=== PATIENT | male | born 1935 | race Caucasian/White ===

== ENCOUNTER 2017-08-04 23:03 | Emergency (ER) | payer MEDICARE, OTHER ==
[2017-08-04 23:17] VITALS: BP 163/93
[2017-08-04] MEDS ORDERED: Acetaminophen/oxyCODONE 325-5 MG Tab PO ONE (23:41)
--- NOTE | 2017-08-04 23:44 | EDM.PDOC ---
ED HPI GENERAL MEDICAL PROBLEM - General Chief Complaint: Genitourinary Problem Stated Complaint: CATH IS COMING OUT Time Seen by Provider: 08/04/17 23:41 Source of Information: Reports: Patient, Family History Limitations: Reports: No Limitations - History of Present Illness INITIAL COMMENTS - FREE TEXT/NARRATIVE: 82-year-old male attends the ED with pain in his suprapubic area and perineum. He is experiencing significant bladder spasms i.e. with the pain he will sometimes express urine around the Lake catheter that he was what was placed 3 days ago. He was placed because his development of significant gross hematuria. Was hospitalized for 24 hours on bladder irrigation to bring the bleeding under control. He is scheduled for cystoscopy next August 10 in [place]. This occurred once before we developed significant hematuria without any positive findings on cystoscopy. Patient has had previous high been radiation treatments to his prostate about 8 years ago for cancer. 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 He does take an aspirin every day but it was stopped by the physicians in [place] until his cystoscopy is done. He came because of the expense and no significant pain and was concerned that the Lake catheter may be in the wrong position or trying to come out. Urine in his drainage bag is clear yellow at this time without blood. There is no evidence that it is clogged up by blood clot.he reports he was given an unknown be suppository after the catheter was placed. A catheter is in place is a 20-gauge with a 30 mL balloon. Onset: Today Onset Date: 08/04/17 Onset Time: 16:00 Duration: Hour(s): Location: Reports: Abdomen (suprapubic abdomen.) Quality: Reports: Ache, Other Severity: Severe (spastic type pain) Improves with: Reports: None (8 out of 10 when he gets bladder spasms.) Worsens with: Reports: None Context: Reports: Other (Lake catheter placed with a 30 mL balloon 20-gauge 2-1 /2 days ago due to development of gross hematuria. Required irrigation of hospitalization in [place] overnight for 24 hours. Discharged early this morning.). 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.) penis Pain Score (Numeric/FACES): 4 - Related Data Allergies Allergy/AdvReac Type Severity Reaction Status Date / Time cortisone Allergy Rash Verified 08/04/17 23:18 diphenhydramine Allergy Difficulty Verified 08/04/17 23:18 [From Benadryl] Breathing venom-honey bee Allergy Difficulty Verified 08/04/17 23:18 [bee venom (honey bee)] Breathing Home Meds: Home Meds Albuterol [Ventolin HFA] 2 puff INH Q4H PRN 02/13/14 [History] Aspirin [Adult Low Dose Aspirin EC] 81 mg PO DAILY 02/13/14 [History] Cayenne 450 mg PO DAILY 02/13/14 [History] Cholecalciferol (Vitamin D3) [Vitamin D] 1,000 unit PO BID 02/13/14 [History] Cinnamon Bark [Cinnamon] 500 mg PO DAILY 02/13/14 [History] EPINEPHrine [Epipen] 0.3 mg IM ASDIRECTED PRN 02/13/14 [History] Enalapril [Vasotec] 5 mg PO DAILY 02/13/14 [History] Flunisolide [Nasalide Nasal [place]] 2 spray YIFAN BID 02/13/14 [History] Hydrochlorothiazide 50 mg PO DAILY 02/13/14 [History] Imipramine HCl [Imipramine] 50 mg PO BEDTIME 02/13/14 [History] Pantoprazole [Protonix] 40 mg PO DAILY 02/13/14 [History] rOPINIRole HCl [Requip] 0.5 mg PO DAILY 02/13/14 [History] Azelastine HCl 2 spray NS BID 08/04/17 [History] Budesonide/Formoterol [Symbicort 80-4.5 MCG] 2 puff INH BID 08/04/17 [History] Cyanocobalamin (Vitamin B12) [Vitamin B12] 1,000 mcg PO DAILY 08/04/17 [History] Levofloxacin [Levaquin] 500 mg PO DAILY 08/04/17 [History] Naproxen Sodium [Aleve] 2 tab PO BID PRN 08/04/17 [History] Ranitidine [Zantac] 150 mg PO BEDTIME 08/04/17 [History] Tiotropium [Spiriva HandiHaler] 2 puff INH DAILY 08/04/17 [History] atorvaSTATin Calcium [Atorvastatin Calcium] 80 mg PO DAILY 08/04/17 [History] guaiFENesin [Guaifenesin ER] 600 mg PO DAILY 08/04/17 [History] oxyCODONE HCl/Acetaminophen [Percocet 5-325 mg Tablet] 1 - 2 each PO Q4H PRN #5 tablet 08/04/17 [Rx] Past Medical History HEENT History: Reports: Impaired Vision Cardiovascular History: Reports: Aneurysm, CAD, High Cholesterol, Hypertension, Other (See Below) Other Cardiovascular History: CVD Respiratory History: Reports: Asthma, COPD Gastrointestinal History: Reports: Gastritis, GERD Genitourinary History: Reports: BPH, Renal Disease, Retention, Urinary, Other ( See Below) Other Genitourinary History: hx prostate cancer with high dose radiation, hematuria Musculoskeletal History: Reports: Arthritis Neurological History: Reports: CVA Psychiatric History: Reports: Other (See Below) Other Psychiatric History: insomnia Hematologic History: Reports: B12 Deficiency Oncologic (Cancer) History: Reports: Basal Cell Carcinoma, Malignant Melanoma, Prostate Dermatologic History: Reports: Benign Melanoma, Melanoma - Past Surgical History HEENT Surgical History: Reports: Tonsillectomy Cardiovascular Surgical History: Reports: AAA Repair, Carotid Stents Neurological Surgical History: Reports: Other (See Below) Other Neurological Surgeries/Procedures: carotid endartectomy Dermatological Surgical History: Reports: Skin Biopsy Social & Family History - Family History Family Medical History: Noncontributory - Tobacco Use Smoking Status *Q: Former Smoker Used Tobacco, but Quit: No - Caffeine Use Caffeine Use: Reports: Coffee - Recreational Drug Use Recreational Drug Use: No - Living Situation & Occupation Living situation: Reports: , with Spouse Occupation: Retired ED [employer] [facility] - Review of Systems Review Of Systems: See Below Constitutional: Reports: Fatigue. Denies: Fever, Chills, Malaise, Weakness, Decreased Appetite, Weight Loss HEENT: Reports: Glasses Respiratory: Reports: Shortness of Breath. Denies: Wheezing, Pleuritic Chest Pain (on exertion. No worse than normal) Cardiovascular: Reports: Blood Pressure Problem, Dyspnea on Exertion. Denies: Chest Pain (high is usually well-controlled hypertension), Claudication, Edema, Lightheadedness, Orthopnea Endocrine: Denies: Fatigue, High Glucose, Low Glucose, Polydypsia GI/Abdominal: Reports: Abdominal Pain (see history of present illness), Constipation, Decreased Appetite : Reports: Hematuria (currently has a Lake catheter placed after development of gross hematuria with clots. It is felt that is most likely radiation-induced as he had radiotherapy to his prostate for cancer 8 years ago. Had a similar episode around [facility] this year with a negative cystoscopy 2 weeks later. Therefore the source of bleeding was never firmly identified) Musculoskeletal: Reports: Back Pain Skin: Reports: No Symptoms Neurological: Reports: No Symptoms ED EXAM, RENAL/ - Physical Exam Exam: See Below Exam Limited By: No Limitations General Appearance: Alert, WD/WN, No Apparent Distress Respiratory/Chest: Respiratory Distress (mild tachypnea at rest.), Decreased Breath Sounds (decreased air entry to both posterior lung marlow.). No: Rales, Rhonchi, Wheezing Cardiovascular: Regular Rate, Rhythm, No Gallop, No Murmur, No Rub, Other. No: Normal Peripheral Pulses GI/Abdominal: No Mass, Tender, Abnormal Bowel Sounds (hypoactive bowel sounds.) . No: Guarding, Rigid, Rebound ( Mild suprapubic pressure discomfort.) (Male) Exam: Other (has a Lake catheter in place. 20-gauge Turkish with a 30 mL balloon. Urine in the drainage bag is regine in color. Ultrasound reveals 27 mils within his urinary bladder. I can see the bulb of his Lake catheter in adequate position it appears to be well seated on exam.) Back Exam: Normal Inspection. No: Full Range of Motion, CVA Tenderness (L), CVA Tenderness (R) Extremities: Normal Inspection, Normal Range of Motion, Normal Capillary Refill Neurological: Alert, Oriented, CN II-XII Intact, Normal Cognition, Normal Gait Psychiatric: Normal Affect Skin Exam: Warm, Dry, Intact, Normal Color, No Rash Course - Vital Signs Last Recorded V/S: Last Vital Signs Temp 36.2 C 08/04/17 23:12 Pulse 116 H 08/04/17 23:12 Resp 20 08/04/17 23:12 BP 163/93 H 08/04/17 23:12 Pulse Ox 89 L 08/04/17 23:12 - Orders/Labs/Meds Meds: Medications Discontinued Medications Generic Name Dose Route Start Last Admin Trade Name Freq PRN Reason Stop Dose Admin Oxycodone/Acetaminophen 1 tab 08/04/17 23:41 08/04/17 23:52 Percocet 325-5 Mg PO 08/04/17 23:42 1 tab ONETIME ONE Administration - Radiology Interpretation Free Text/Narrative:: 82-year-old male attends the ED for evaluation of Lake catheter and lower abdominal pain. He had a Lake catheter placed with irrigation about 2-1/2 days ago due to development of gross hematuria. He is scheduled for cystoscopy next August 10. He's noted intermittent pink discharge in his urinary bag but for the most part the urine has remained clear since discharge from hospital. Restarted to develop severe spasms of his bladder that push urine out around the Lake catheter. Therefore he was concerned Lkae catheter become malpositioned was going to be extruded. Ultrasound confirms blood to be full and in appropriate position plus examination reveals the bulb is well seated in the bladder trigone. Currently the urine is regine in color without bleeding. Therefore appears to be draining adequately without any evidence that it is occluded by blood clot. I think he is expressing significant bladder spasms from irritation from the larger lobe of the Lake. Going to place him on Percocet tabs 03/09/25 one every 4-6 hours needed for pain relief overnight. Prescription written for OMB suppositories i.e. opium and belladonna that have to be compounded at [facility] pharmacy tomorrow. Return for 10 suppositories one every 6 hours per rectum if needed for spasms. One repeat was written for. Departure - Departure Time of Disposition: 23:42 Disposition: Home, Self-Care 01 Condition: Fair Clinical Impression: Painful bladder spasm - Discharge Information Prescriptions: oxyCODONE HCl/Acetaminophen [Percocet 5-325 mg Tablet] 1 - 2 each PO Q4H PRN #5 tablet PRN Reason: pain relief. Instructions: Lake Catheter Care, Adult Referrals: Renzo Barber Jr, MD [Primary Care Provider] - Forms: ED Department Discharge Additional Instructions: evaluation in the emergency room tonight in regards to diffuse lower abdominal suprapubic pressure discomfort since having Lake catheter placed yesterday. Lake catheter was placed because of hemorrhagic cystitis. This is most likely radiation-induced. Painful bladder spasms seem to be occurring tonight. Current urine in the bag is clear without blood. Therefore there is no sign for catheter is plugged up with a clot. Ultrasound reveals the bladder to be essentially empty only the balloon was visible on ultrasound. The catheter is in the right position. Therefore I believe you're suffering from urinary bladder spasms due to catheter irritating the bladder wall when it is empty. Suggest one tablet of Percocet 5/3/25 milligrams every 4-6 hours needed for pain relief at least overnight. Tomorrow he may fill a prescription for opium and belladonna suppositories as they work better to control bladder spasms and to be used as needed 1 every 6-8 hours. Follow-up with urology and week's time as planned.
[2017-08-04] MEDS ORDERED: Acetaminophen/oxyCODONE 325-5 MG Tab ONE (23:58)
== END 2017-08-05 | disposition home or self-care (01) ==
LOC: JD.ED 23:03
DX: N32.89 Other specified disorders of bladder (principal); I25.10 Atherosclerotic heart disease of native coronary artery without angina pectoris; E78.00 Pure hypercholesterolemia, unspecified; I10 Essential (primary) hypertension; K21.9 Gastro-esophageal reflux disease without esophagitis; M19.90 Unspecified osteoarthritis, unspecified site; J44.9 Chronic obstructive pulmonary disease, unspecified; Z86.73 Personal history of transient ischemic attack (TIA), and cerebral infarction without residual deficits; Z98.890 Other specified postprocedural states; Z85.828 Personal history of other malignant neoplasm of skin; Z87.891 Personal history of nicotine dependence; Z79.82 Long term (current) use of aspirin; Z79.899 Other long term (current) drug therapy; Z91.030 Bee allergy status; Z88.8 Allergy status to other drugs, medicaments and biological substances
CPT/HCPCS: 51798; 99283; A9270

== ENCOUNTER 2019-01-10 17:07 | Emergency (ER) | payer MEDICARE, OTHER ==
[2019-01-10 17:34] VITALS: BP 153/91
[2019-01-10] MEDS ORDERED: Sodium Chloride 0.9% 10 ML Syringe FLUSH PRN (19:22)
[2019-01-10] MEDS ORDERED: Sodium Chloride 0.9% 1,000 ML IV SCH (19:30)
--- NOTE | 2019-01-10 20:09 | EDM.PDOC ---
ED HPI GENERAL MEDICAL PROBLEM - General Chief Complaint: General Stated Complaint: WEAKNESS Time Seen by Provider: 01/10/19 18:57 Source of Information: Reports: Patient, Family History Limitations: Reports: No Limitations - History of Present Illness INITIAL COMMENTS - FREE TEXT/NARRATIVE: The patient presents with generalized weakness. He woke up this morning and says he could not walk because he is very weak. He can move his legs but they are weak. He denies headache, fever, chills, cough, congestion, runny nose, chest pain, shortness of breath, abdominal pain, nausea or vomiting. He does say that he has been urinating more then usual but he says he has been drinking more. He has no numbness or tingling anywhere. This has never happened go him before. He denies back pain. Onset: Gradual Duration: Hour(s): (Woke up this morning like this) Severity: Moderate Improves with: Reports: None Worsens with: Reports: None Associated Symptoms: Reports: No Other Symptoms - Related Data Allergies Allergy/AdvReac Type Severity Reaction Status Date / Time cortisone Allergy Rash Verified 01/10/19 17:30 diphenhydramine Allergy Difficulty Verified 01/10/19 17:30 [From Benadryl] Breathing venom-honey bee Allergy Difficulty Verified 01/10/19 17:30 [bee venom (honey bee)] Breathing Home Meds: Home Meds Aspirin [Adult Low Dose Aspirin EC] 81 mg PO DAILY 02/13/14 [History] Cholecalciferol (Vitamin D3) [Vitamin D] 1,000 unit PO DAILY 02/13/14 [History] Cinnamon Bark [Cinnamon] 1,000 mg PO DAILY 02/13/14 [History] EPINEPHrine [Epipen] 0.3 mg IM ASDIRECTED PRN 02/13/14 [History] Enalapril [Vasotec] 5 mg PO DAILY 02/13/14 [History] Flunisolide [Nasalide Nasal [place]] 2 spray YIFAN BID 02/13/14 [History] Imipramine HCl [Imipramine] 50 mg PO BEDTIME 02/13/14 [History] hydroCHLOROthiazide [Hydrochlorothiazide] 50 mg PO DAILY 02/13/14 [History] rOPINIRole HCl [Requip] 0.5 mg PO DAILY 02/13/14 [History] Cyanocobalamin (Vitamin B12) [Vitamin B12] 1,000 mcg PO DAILY 08/04/17 [History] Naproxen Sodium [Aleve] 2 tab PO BID PRN 08/04/17 [History] Tiotropium [Spiriva HandiHaler] 2 puff INH DAILY 08/04/17 [History] atorvaSTATin Calcium [Atorvastatin Calcium] 80 mg PO BEDTIME 08/04/17 [History] guaiFENesin [Guaifenesin ER] 600 mg PO DAILY 08/04/17 [History] Past Medical History HEENT History: Reports: Cataract, Impaired Vision Cardiovascular History: Reports: Aneurysm, CAD, High Cholesterol, Hypertension, Other (See Below) Other Cardiovascular History: CVD Respiratory History: Reports: Asthma, COPD Gastrointestinal History: Reports: Gastritis, GERD Genitourinary History: Reports: BPH, Retention, Urinary, Other (See Below) Other Genitourinary History: hx prostate cancer with high dose radiation, hematuria Musculoskeletal History: Reports: Arthritis Neurological History: Reports: CVA Psychiatric History: Reports: Other (See Below) Other Psychiatric History: insomnia Hematologic History: Reports: B12 Deficiency Oncologic (Cancer) History: Reports: Basal Cell Carcinoma, Malignant Melanoma, Prostate Dermatologic History: Reports: Benign Melanoma, Melanoma - Past Surgical History HEENT Surgical History: Reports: Tonsillectomy Cardiovascular Surgical History: Reports: AAA Repair, Carotid Stents Respiratory Surgical History: Reports: None GI Surgical History: Reports: Appendectomy Male Surgical History: Reports: TURP-Transurethral Resection of Prostate Neurological Surgical History: Reports: Other (See Below) Other Neurological Surgeries/Procedures: carotid endartectomy Oncologic Surgical History: Reports: None Dermatological Surgical History: Reports: Skin Biopsy Social & Family History - Family History Family Medical History: Noncontributory - Tobacco Use Smoking Status *Q: Former Smoker Used Tobacco, but Quit: Yes Month/Year Tobacco Last Used: 1988 - Caffeine Use Caffeine Use: Reports: None - Recreational Drug Use Recreational Drug Use: No - Living Situation & Occupation Living situation: Reports: , with Spouse Occupation: Retired ED [employer] GENERAL - Review of Systems Review Of Systems: See Below Constitutional: Reports: No Symptoms HEENT: Reports: No Symptoms Respiratory: Reports: No Symptoms Cardiovascular: Reports: No Symptoms Endocrine: Reports: No Symptoms GI/Abdominal: Reports: No Symptoms : Reports: Frequency. Denies: Dysuria Musculoskeletal: Reports: No Symptoms Skin: Reports: No Symptoms ED EXAM, GENERAL - Physical Exam Exam: See Below Exam Limited By: No Limitations General Appearance: Alert, No Apparent Distress Ears: Normal External Exam Nose: Normal Inspection Head: Atraumatic, Normocephalic Neck: Normal Inspection, Supple, Non-Tender Respiratory/Chest: No Respiratory Distress, Lungs Clear, Normal Breath Sounds Cardiovascular: Regular Rate, Rhythm, No Edema, No Murmur GI/Abdominal: Soft, Non-Tender, No Organomegaly, No Mass Back Exam: Normal Inspection Extremities: Normal Inspection Neurological: Alert, Oriented, No Motor/Sensory Deficits, Other (The patient has equal strength and he can lift his legs off of the bed) EKG INTERPRETATION EKG Date: 01/10/19 Time: 19:27 Rhythm: NSR Rate (Beats/Min): 68 [place]: LAD-Left [place] Deviation P-Wave: Present QRS: RBBB ST-T: Normal QT: Normal MT/PQ Interval: 1st degree HB Course - Vital Signs Last Recorded V/S: Last Vital Signs Temp 98.3 F 01/10/19 17:30 Pulse 82 01/10/19 17:30 Resp 16 01/10/19 17:30 BP 153/91 H 01/10/19 17:30 Pulse Ox 87 L 01/10/19 17:30 - Orders/Labs/Meds Orders: Active Orders 24 hr Category Date Time Status Cardiac Monitoring [RC] . DIRECTED Care 01/10/19 19:22 Active EKG Documentation Completion [RC] STAT Care 01/10/19 19:22 Active Peripheral IV Care [RC] . DIRECTED Care 01/10/19 19:22 Active Chest 1V Frontal [CR] Stat Exams 01/10/19 19:23 Taken Sodium Chloride 0.9% [Normal Saline] 1,000 ml Med 01/10/19 19:30 Active IV ASDIRECTED Sodium Chloride 0.9% [Saline Flush] Med 01/10/19 19:22 Active 10 ml FLUSH ASDIRECTED PRN Peripheral IV Insertion Adult [OM.PC] Stat Oth 01/10/19 19:22 Ordered Medication Orders Sodium Chloride (Normal Saline) 1,000 mls @ 125 mls/hr IV ASDIRECTED GEORGE Last Admin: 01/10/19 19:33 Dose: 125 mls/hr Sodium Chloride (Saline Flush) 10 ml FLUSH ASDIRECTED PRN PRN Reason: Keep Vein Open Last Admin: 01/10/19 19:34 Dose: 10 ml Labs: Laboratory Tests 01/10/19 01/10/19 01/10/19 Range/Units 19:30 19:30 20:10 WBC 7.87 (4.23-9.07) K/mm3 RBC 5.51 (4.63-6.08) M/mm3 Hgb 15.1 (13.7-17.5) gm/L Hct 45.2 (40.1-51.0) % MCV 82.0 (79.0-92.2) fl MCH 27.4 (25.7-32.2) pg MCHC 33.4 (32.2-35.5) g/dl RDW Std Deviation 44.9 H (35.1-43.9) fL Plt Count 215 (163-337) K/mm3 MPV 9.2 L (9.4-12.3) fl Neut % (Auto) 79.1 H (34.0-67.9) % Lymph % (Auto) 12.2 L (21.8-53.1) % [place] % (Auto) 7.4 (5.3-12.2) % Eos % (Auto) 0.9 (0.8-7.0) Baso % (Auto) 0.3 (0.1-1.2) % Neut # (Auto) 6.23 H (1.78-5.38) K/mm3 Lymph # (Auto) 0.96 L (1.32-3.57) K/mm3 [place] # (Auto) 0.58 (0.30-0.82) K/mm3 Eos # (Auto) 0.07 (0.04-0.54) K/mm3 Baso # (Auto) 0.02 (0.01-0.08) K/mm3 Sodium 134 L (136-145) mEq/L Potassium 3.1 L (3.5-5.1) mEq/L Chloride 96 L (98-107) mEq/L Carbon Dioxide 33 H (21-32) mEq/L Anion Gap 8.1 (5-15) BUN 18 (7-18) mg/dL Creatinine 1.0 (0.7-1.3) mg/dL Est Cr Clr Drug Dosing 56.05 mL/min Estimated GFR (MDRD) > 60 (>60) mL/min BUN/Creatinine Ratio 18.0 (14-18) Glucose 110 (83-115) mg/dL Calcium 9.5 (8.5-10.1) mg/dL Total Bilirubin 0.7 (0.2-1.0) mg/dL AST 27 (15-37) U/L ALT 24 (16-63) U/L Alkaline Phosphatase 82 (46-116) U/L Troponin I < 0.017 (0.00-0.056) ng/mL Total Protein 6.7 (6.4-8.2) g/dl Albumin 3.4 (3.4-5.0) g/dl Globulin 3.3 gm/dL Albumin/Globulin Ratio 1.0 (1-2) Urine Color Yellow (Yellow) Urine Appearance Clear (Clear) Urine pH 7.0 (5.0-8.0) Ur Specific Humphrey 1.015 (1.005-1.030) Urine Protein 1+ H (Negative) Urine Glucose (UA) Negative (Negative) Urine Ketones Negative (Negative) Urine Occult Blood Negative (Negative) Urine Nitrite Negative (Negative) Urine Bilirubin Negative (Negative) Urine Urobilinogen 1.0 (0.2-1.0) Ur Leukocyte Esterase Negative (Negative) Urine RBC 0-5 (0-5) /hpf Urine WBC Not seen (0-5) /hpf Ur Epithelial Cells Not seen (0-5) /hpf Urine Bacteria Occasional (FEW) /hpf Urine Mucus Not seen (FEW) /hpf Meds: Medications Generic Name Dose Route Start Last Admin Trade Name Freq PRN Reason Stop Dose Admin Sodium Chloride 1,000 mls @ 125 mls/hr 01/10/19 19:30 01/10/19 19:33 Normal Saline IV 125 mls/hr ASDIRECTED GEORGE Administration Sodium Chloride 10 ml 01/10/19 19:22 01/10/19 19:34 Saline Flush FLUSH 10 ml ASDIRECTED PRN Administration Keep Vein Open - Re-Assessments/Exams Free Text/Narrative Re-Assessment/Exam: 01/10/19 20:09 I ordered an IV NS at 125mL/hr, labs, EKG, UA and a CT of his head. 01/10/19 20:47 His EKG shows a NSR with RBBB and no acute changes. His CBC looks good. His Na was a little low at 134. His K was low at 3.1. His troponin is negative. His UA shows no UTI. His CT shows finding within the left cerebellum and lyla which could represent small vessel ischemic demyelination change but difficult to exclude early infarct. MRI would needed to differentiate. Other senescent changes. No intracranial hemorrhage is seen. I talked to our hospitalist Dr Zamora and she wanted him to be transferred. She would not accept him. I called [facility] in [place] and talked with the neurologist Dr Saunders and he agreed with Dr Urena's read and recommended an MRI. He did not think they could get an MRI any sooner then tomorrow also but he would accept him. Our hospitalist would not take him. I also talked to the hospitalist Dr Rowe and she accepted the patient. I will transfer by ambulance. Departure - Departure Time of Disposition: 21:05 Disposition: DC/Tfer to Acute Hospital 02 Condition: Poor Clinical Impression: CVA, Cerebrovascular accident, Bilateral leg weakness, Hyponatremia - Discharge Information Referrals: Renzo Barber Jr, MD [Primary Care Provider] - Forms: ED Department Discharge - My Orders Last 24 Hours: My Active Orders 01/10/19 19:22 Cardiac Monitoring [RC] . DIRECTED EKG Documentation Completion [RC] STAT Peripheral IV Care [RC] . DIRECTED Sodium Chloride 0.9% [Saline Flush] 10 ml FLUSH ASDIRECTED PRN Peripheral IV Insertion Adult [OM.PC] Stat 01/10/19 19:23 Chest 1V Frontal [CR] Stat 01/10/19 19:30 Sodium Chloride 0.9% [Normal Saline] 1,000 ml IV ASDIRECTED - Assessment/Plan Last 24 Hours: My Active Orders 01/10/19 19:22 Cardiac Monitoring [RC] . DIRECTED EKG Documentation Completion [RC] STAT Peripheral IV Care [RC] . DIRECTED Sodium Chloride 0.9% [Saline Flush] 10 ml FLUSH ASDIRECTED PRN Peripheral IV Insertion Adult [OM.PC] Stat 01/10/19 19:23 Chest 1V Frontal [CR] Stat 01/10/19 19:30 Sodium Chloride 0.9% [Normal Saline] 1,000 ml IV ASDIRECTED
--- NOTE | 2019-01-10 20:18 | CT ---
Head CT Technique: Multiple axial sections through the brain were obtained. Intravenous contrast was not utilized. Comparison: No prior intracranial imaging is available. Findings: Ventricles along with basal cisterns and sulci over convexities are mildly prominent. Diminished density is noted within portions of the basal ganglia as well as periventricular white matter compatible with small vessel ischemic demyelination change. Ill-defined low density is noted within the left cerebellar white matter and left cerebellar hemisphere possibly due to additional small vessel ischemic demyelination change or early area of infarct. Additional low density is noted within the lyla which may represent additional small vessel ischemic demyelination change or infarct. No other abnormal parenchymal densities are seen. No evidence of intracranial hemorrhage. No midline shift or mass effect is seen. Mild atherosclerotic calcification seen within the carotid siphon. No acute calvarial abnormality is seen. Visualized sinuses are clear. Impression: 1. Finding within the left cerebellum and lyla which could represent small vessel ischemic demyelination change but difficult to exclude early infarct. MRI would be needed to differentiate. 2. Other senescent change as noted above. 3. No intracranial hemorrhage is seen. Diagnostic code #3
--- NOTE | 2019-01-11 07:06 | CR ---
Chest: Portable view of the chest was obtained. Comparison: Prior chest x-ray of 02/22/13. Heart size is within normal limits. Slight tortuosity of the thoracic aorta is seen. Minimal left basilar atelectasis is noted. Lungs otherwise are clear. Bony structures are grossly intact. Impression: 1. Incidental findings. Nothing acute is seen. Diagnostic code #2
== END 2019-01-10 21:35 ==
LOC: JD.ED 17:07
DX: I63.9 Cerebral infarction, unspecified (principal); E87.1 Hypo-osmolality and hyponatremia; M62.81 Muscle weakness (generalized); I10 Essential (primary) hypertension; J44.9 Chronic obstructive pulmonary disease, unspecified; Z88.8 Allergy status to other drugs, medicaments and biological substances; Z91.030 Bee allergy status; Z79.82 Long term (current) use of aspirin; Z79.899 Other long term (current) drug therapy; Z87.891 Personal history of nicotine dependence
CPT/HCPCS: 36415; 70450; 71045; 80053; 81001; 84484; 85025; 93005; 96360; 96361; 99285; J7040; 93010

== ENCOUNTER 2019-03-04 18:47 | Emergency (ER) | payer MEDICARE, OTHER ==
[2019-03-04 18:57] VITALS: BP 160/81
--- NOTE | 2019-03-04 19:26 | EDM.PDOC ---
ED HPI GENERAL MEDICAL PROBLEM - General Chief Complaint: Back Pain or Injury Stated Complaint: back and shoulder pain right hand cold Time Seen by Provider: 03/04/19 19:25 Source of Information: Reports: Patient, Family (spouse and son) History Limitations: Reports: No Limitations - History of Present Illness INITIAL COMMENTS - FREE TEXT/NARRATIVE: 83-year-old male presents to the ED with sensation of his right hand being cooler than his left. Note the patient had a stroke 2 months ago and does have diffuse right-sided weakness. Is complaining of some pain up underneath his right shoulder blade. This is fairly sharp and stabbing. Family brought him with concerns that he might have a blood clot. Plaints. He has full unopposed range of motion of his right upper extremity and his neck has limited range of motion due to arthritis. Denies any radiculopathy in the right upper extremity. The arm itself is not painful Onset: Today, Other (Noted by family members today that the right hand seen to be Coumadin the left. Did not appreciate this in the past.) Duration: Other (Unknown for sure.) Location: Reports: Upper Extremity, Right (Right upper extremity like hand feels cooler than the left.) Quality: Reports: Other (Has a ache pretty painful discomfort underneath his right shoulder blade.) Severity: Mild Improves with: Reports: None Worsens with: Reports: None Context: Denies: Activity, Exercise, Lifting, Sick Contact, Trauma, Other Associated Symptoms: Denies: No Other Symptoms, Confusion, Chest Pain, Cough, cough w sputum, Diaphoresis, Fever/Chills, Headaches, Loss of Appetite, Malaise , Nausea/Vomiting, Rash, Seizure, Shortness of Breath, Syncope Treatments FORCE ADJUSTMENT SUPERVISOR: Reports: Other (see below) (None.) Other Treatments FORCE ADJUSTMENT SUPERVISOR: none Right Upper Back Pain Score (Numeric/FACES): 3 - Related Data Allergies Allergy/AdvReac Type Severity Reaction Status Date / Time cortisone Allergy Rash Verified 01/10/19 17:30 diphenhydramine Allergy Difficulty Verified 01/10/19 17:30 [From Benadryl] Breathing venom-honey bee Allergy Difficulty Verified 01/10/19 17:30 [bee venom (honey bee)] Breathing Home Meds: Home Meds Cholecalciferol (Vitamin D3) [Vitamin D] 1,000 unit PO DAILY 02/13/14 [History] Cinnamon Bark [Cinnamon] 1,000 mg PO DAILY 02/13/14 [History] EPINEPHrine [Epipen] 0.3 mg IM ASDIRECTED PRN 02/13/14 [History] Enalapril [Vasotec] 5 mg PO DAILY 02/13/14 [History] Flunisolide [Nasalide Nasal [place]] 2 spray YIFAN BID 02/13/14 [History] Imipramine HCl [Imipramine] 50 mg PO BEDTIME 02/13/14 [History] hydroCHLOROthiazide [Hydrochlorothiazide] 50 mg PO DAILY 02/13/14 [History] rOPINIRole HCl [Requip] 0.5 mg PO DAILY 02/13/14 [History] Cyanocobalamin (Vitamin B12) [Vitamin B12] 1,000 mcg PO DAILY 08/04/17 [History] Tiotropium [Spiriva HandiHaler] 2 puff INH DAILY 08/04/17 [History] atorvaSTATin Calcium [Atorvastatin Calcium] 80 mg PO BEDTIME 08/04/17 [History] guaiFENesin [Guaifenesin ER] 600 mg PO DAILY 08/04/17 [History] Ibuprofen [Motrin] 600 mg PO ASDIRECTED 03/04/19 [History] Rosuvastatin Calcium [Crestor] 40 mg PO DAILY 03/04/19 [History] Past Medical History HEENT History: Reports: Cataract, Impaired Vision Cardiovascular History: Reports: Aneurysm, CAD, High Cholesterol, Hypertension, Other (See Below) Other Cardiovascular History: CVD Respiratory History: Reports: Asthma, COPD Gastrointestinal History: Reports: Gastritis, GERD Genitourinary History: Reports: BPH, Retention, Urinary, Other (See Below) Other Genitourinary History: hx prostate cancer with high dose radiation, hematuria Musculoskeletal History: Reports: Arthritis Neurological History: Reports: CVA Psychiatric History: Reports: Other (See Below) Other Psychiatric History: insomnia Hematologic History: Reports: B12 Deficiency Oncologic (Cancer) History: Reports: Basal Cell Carcinoma, Malignant Melanoma, Prostate Dermatologic History: Reports: Benign Melanoma, Melanoma - Past Surgical History HEENT Surgical History: Reports: Tonsillectomy Cardiovascular Surgical History: Reports: AAA Repair, Carotid Stents Respiratory Surgical History: Reports: None GI Surgical History: Reports: Appendectomy Male Surgical History: Reports: TURP-Transurethral Resection of Prostate Neurological Surgical History: Reports: Other (See Below) Other Neurological Surgeries/Procedures: carotid endartectomy Oncologic Surgical History: Reports: None Dermatological Surgical History: Reports: Skin Biopsy Social & Family History - Family History Family Medical History: Noncontributory - Tobacco Use Smoking Status *Q: Former Smoker Used Tobacco, but Quit: Yes Month/Year Tobacco Last Used: 30 - Caffeine Use Caffeine Use: Reports: Soda - Recreational Drug Use Recreational Drug Use: No - Living Situation & Occupation Living situation: Reports: , with Spouse Occupation: Retired ED ROS GENERAL - Review of Systems Review Of Systems: See Below Constitutional: Reports: Weakness (Has right-sided weakness since his stroke 2 months ago.), Fatigue, Decreased Appetite. Denies: Fever, Chills, Malaise, Weight Loss HEENT: Reports: Glasses ( stroke.), Vision Change (Patient changed but with the) Respiratory: Reports: Shortness of Breath. Denies: Cough, Sputum (On exertion.) , Hemoptysis Cardiovascular: Reports: Blood Pressure Problem, Dyspnea on Exertion ( Chronically). Denies: Chest Pain, Claudication, Edema, Lightheadedness, Orthopnea (Has chronic hypertension) Endocrine: Reports: Fatigue GI/Abdominal: Reports: Constipation (Occasional problems with constipation.) : Reports: Frequency, Other (Nocturia usually 2.) Musculoskeletal: Reports: Neck Pain (Due to [place] arthritic changes.), Back Pain Skin: Reports: No Symptoms Neurological: Reports: Weakness (Right-sided hemiparesis mild weakness) Psychiatric: Reports: No Symptoms ( since stroke 2 months ago) Hematologic/Lymphatic: Reports: No Symptoms Immunologic: Reports: No Symptoms ED EXAM, UPPER BACK/NECK PAIN - Physical Exam Exam: See Below Exam Limited By: No Limitations General Appearance: Alert, WD/WN, No Apparent Distress, Other (Blood pressures borderline high at 160/81. Respiratory distress 20 with sats of 92% on room air. ) Eye Exam: Bilateral Eye: PERRL Throat/Mouth Exam: Normal Inspection, Normal Lips, Normal Oropharynx Neck Exam: Tender Lateral (Bilaterally. Range of motion is slightly decreased from the norm.) Nexus Criteria: No: Posterior, Midline Cervical Tenderness, Evidence of Intoxication, Altered Level of Consciousness, Focal Neurological Deficit, Painful Distraction Injuries Cardiovascular/Respiratory: Regular Rate, Rhythm, No M/R/G, Normal Peripheral Pulses (Particularly right upper extremity has normal radial and perhaps slightly weakened ulnar pulse.), Normal Breath Sounds, Other (Mild tachypnea at rest. O2 sats 92% on room air.) GI/Abdominal: Normal Bowel Sounds, Soft, Non-Tender, No Organomegaly, No Abnormal Bruit, No Mass, Pelvis Stable Back Exam: Normal Inspection, Full Range of Motion, Other (Patient has a scar from right anterior shoulder that travels under his axilla and up into his back. This was the site of a excision of a malignant melanoma 30 years ago with wide excision of lesion. Examination of his back shows no paraspinal muscle spasm. He does have scoliosis of the thoracic spine concave to the right side. I cannot localize any pain. He can push against my hand strongly without any pain in his shoulder blade area.) Extremities: Normal Inspection, Normal Range of Motion, Non-Tender, Normal Capillary Refill, Other (He has full range of motion of his right upper extremity and no pain in the elbow arm wrist. His strength is 5 out of 5 in the upper extremity. The ulnar aspect of his hand is does feel a bit cooler than the right side. The ulnar pulses little weaker on been on the other side of the radial pulse is good and strong. There is no clinical evidence of rotator cuff injury.) Neurologic: Alert, Normal Mood/Affect, Oriented x 3. No: Disoriented x 3 Psychiatric: Normal Affect, Normal Mood Skin Exam: Normal Color, Warm/Dry Lymphatic: No Adenopathy Course - Vital Signs Last Recorded V/S: Last Vital Signs Temp 36.5 C 03/04/19 18:56 Pulse 78 03/04/19 18:56 Resp 20 03/04/19 18:56 BP 160/81 H 03/04/19 18:56 Pulse Ox 92 L 03/04/19 18:56 - Orders/Labs/Meds Orders: Active Orders 24 hr Category Date Time Status Chest 1V Frontal [CR] Stat Exams 03/04/19 19:25 Taken Labs: Laboratory Tests 03/04/19 03/04/19 03/04/19 Range/Units 20:30 20:30 20:30 WBC 13.17 H (4.23-9.07) K/mm3 RBC 5.37 (4.63-6.08) M/mm3 Hgb 14.8 (13.7-17.5) gm/L Hct 44.8 (40.1-51.0) % MCV 83.4 (79.0-92.2) fl MCH 27.6 (25.7-32.2) pg MCHC 33.0 (32.2-35.5) g/dl RDW Std Deviation 45.4 H (35.1-43.9) fL Plt Count 250 (163-337) K/mm3 MPV 9.4 (9.4-12.3) fl Neutrophils % (Manual) 79 H (40-60) % Band Neutrophils % 1 (0-10) % Lymphocytes % (Manual) 11 L (20-40) % Atypical Lymphs % 0 % Monocytes % (Manual) 9 (2-10) % Eosinophils % (Manual) 0 L (0.8-7.0) % Basophils % (Manual) 0 L (0.2-1.2) Platelet Estimate Adequate Plt Morphology Comment Normal RBC Morph Comment Normal PT 10.6 (9.5-12.1) SECONDS INR 0.97 APTT 28 (24-31) SECONDS D-Dimer, Quantitative 0.49 (0.19-0.50) mg/L Sodium 135 L (136-145) mEq/L Potassium 3.7 (3.5-5.1) mEq/L Chloride 96 L (98-107) mEq/L Carbon Dioxide 31 (21-32) mEq/L Anion Gap 11.7 (5-15) BUN 30 H (7-18) mg/dL Creatinine 1.0 (0.7-1.3) mg/dL Est Cr Clr Drug Dosing 56.05 mL/min Estimated GFR (MDRD) > 60 (>60) mL/min BUN/Creatinine Ratio 30.0 H (14-18) Glucose 124 H (83-115) mg/dL Calcium 9.7 (8.5-10.1) mg/dL Magnesium 2.0 (1.8-2.4) mg/dl Total Bilirubin 0.6 (0.2-1.0) mg/dL AST 26 (15-37) U/L ALT 38 (16-63) U/L Alkaline Phosphatase 84 (46-116) U/L NT-Pro-B Natriuret Pep (0-450) pg/mL Total Protein 6.4 (6.4-8.2) g/dl Albumin 3.3 L (3.4-5.0) g/dl Globulin 3.1 gm/dL Albumin/Globulin Ratio 1.1 (1-2) 03/04/19 Range/Units 20:30 WBC (4.23-9.07) K/mm3 RBC (4.63-6.08) M/mm3 Hgb (13.7-17.5) gm/L Hct (40.1-51.0) % MCV (79.0-92.2) fl MCH (25.7-32.2) pg MCHC (32.2-35.5) g/dl RDW Std Deviation (35.1-43.9) fL Plt Count (163-337) K/mm3 MPV (9.4-12.3) fl Neutrophils % (Manual) (40-60) % Band Neutrophils % (0-10) % Lymphocytes % (Manual) (20-40) % Atypical Lymphs % % Monocytes % (Manual) (2-10) % Eosinophils % (Manual) (0.8-7.0) % Basophils % (Manual) (0.2-1.2) Platelet Estimate Plt Morphology Comment RBC Morph Comment PT (9.5-12.1) SECONDS INR APTT (24-31) SECONDS D-Dimer, Quantitative (0.19-0.50) mg/L Sodium (136-145) mEq/L Potassium (3.5-5.1) mEq/L Chloride (98-107) mEq/L Carbon Dioxide (21-32) mEq/L Anion Gap (5-15) BUN (7-18) mg/dL Creatinine (0.7-1.3) mg/dL Est Cr Clr Drug Dosing mL/min Estimated GFR (MDRD) (>60) mL/min BUN/Creatinine Ratio (14-18) Glucose (83-115) mg/dL Calcium (8.5-10.1) mg/dL Magnesium (1.8-2.4) mg/dl Total Bilirubin (0.2-1.0) mg/dL AST (15-37) U/L ALT (16-63) U/L Alkaline Phosphatase (46-116) U/L NT-Pro-B Natriuret Pep 254 (0-450) pg/mL Total Protein (6.4-8.2) g/dl Albumin (3.4-5.0) g/dl Globulin gm/dL Albumin/Globulin Ratio (1-2) - Radiology Interpretation Free Text/Narrative:: 83-year-old male presents to the ED with pain and up underneath his right shoulder blade. He states his right arm feels a bit cooler than normal or at least his family appreciates that on the ulnar aspect of his hand. Note this side suffered hemiparesis from stroke 2 months ago. He is not on any anticoagulants. He wasn't worked up to the pulse oximetry continuously and therefore had had a book back up. He has 92% on room air. BP is 153/83. I will now have routine labs performed including a d-dimer as am not sure what his baseline oxygen level is. We are still trying to get a up-to-date med list on him as well. - Re-Assessments/Exams Free Text/Narrative Re-Assessment/Exam: 03/04/19 20:10 portable chest x-ray completed. It shows mild hyperinflated lung marlow. Cardiac silhouette is upper limits of normal. There appears to be a chronic infiltrate in the left lower lobe compatible with either pericardial fat pad small effusion. There is prominence of the vasculature throughout all lobes. There is calcification within the arch of the aorta Appears to have the pattern of mild congestive failure. Chest x-ray compared to one done in January is [id number] 20:11 03/04/19 20:18 when I asked him what his normal O2 sats are easy states they're always low 92 or less. 03/04/19 20:29 it appears that the patient is on Plavix which is not in his current med list. These no longer on aspirin. He has been taking Motrin when she was advised against doing. He was taking Motrin and Aleve for arthritis pain. Advise Tylenol only when he is on the Plavix. Therefore Tylenol likely that he would have any blood clot while taking the Plavix. 03/04/19 21:30: Labs reveal a mildly elevated white count at 13.17. 79% neutrophils and 1% bands. He is afebrile. Hemoglobin is 14.8 with hematocrit of 44.8. Platelet count is 250,000. PT is 10.6 with an INR of 0.97. PTT is 28. D- dimer was normal at 0.49. Sodium slightly low at 135. Potassium 3.7. Chloride is 96 with a bicarbonate of 31. Anion gap is 11.7. BUN is mildly elevated at 30. Glucose is 124. Calcium is 9.7. Magnesium normal at 2.0. Liver function normal. BNP is 254. Total protein 6.4 albumin fraction slightly low at 3.3. She' ll be discharged to home. No changes to medications will be made at this time. He is to follow-up if he develops a fever. Departure - Departure Time of Disposition: 21:15 Disposition: Home, Self-Care 01 Condition: Fair Clinical Impression: Upper back pain on right side - Discharge Information *PRESCRIPTION DRUG MONITORING PROGRAM REVIEWED*: Not Applicable *COPY OF PRESCRIPTION DRUG MONITORING REPORT IN PATIENT CHAVA: Not Applicable Instructions: Acute Back Pain, Adult Referrals: Renzo Barber Jr, MD [Primary Care Provider] - Forms: ED Department Discharge Additional Instructions: Evaluation in the emergency department tonight in regards to noted coolness to the ulnar aspect of the right hand today. This means the fourth and fifth fingers and the side of that hand are somewhat cooler than the other side. This is not been appreciated in the past. Stroke affected the right side arm and leg 2 months ago. This is the most likely cause of this temperature change. The pulses to the hand and capillary return to the fingertips is were well within normal limits. Pain in the right upper back appears to be Musca skeletal in origin. Chest x-ray was normal. It does suggest a chronic infiltrate in the left lower lobe of the lung which is been present for the last 6 months. This likely represents fat around the heart. Lab tests proved to be completely normal with no signs of blood clots and no signs of heart failure. Therefore this time no further treatment is advised. Continue all medications as previously prescribed. Changes to the opening and closing of blood vessels can occur after a stroke and therefore I I believe that's what's happened today to make the right hand feels somewhat cooler than the right side. This may be transient or may be noticed whenever they hand is exposed to cooler temperatures. By itself it doesn't mean anything. - My Orders Last 24 Hours: My Active Orders 03/04/19 19:25 Chest 1V Frontal [CR] Stat - Assessment/Plan Last 24 Hours: My Active Orders 03/04/19 19:25 Chest 1V Frontal [CR] Stat
--- NOTE | 2019-03-05 06:55 | CR ---
Chest: Portable view of the chest was obtained. Comparison: Prior chest x-ray 01/10/19 and 02/22/13. Small nodule is noted within the right lung base. This is not definitely identified on prior study. Slight atelectasis or scarring is seen overlying the left hemidiaphragm. Lungs otherwise are clear. Heart size within normal limits for portable technique. Tortuous thoracic aorta is seen. Bony structures are grossly intact. Impression: 1. Small nodule within the right lung base not definitely seen on prior study. Chest CT could be considered without contrast to confirm a pulmonary nodule. 2. Slight atelectasis or scarring within the left base. 3. Nothing acute is otherwise seen. Diagnostic code #9
== END 2019-03-04 21:34 | disposition home or self-care (01) ==
LOC: JD.ED 18:47
DX: M54.6 Pain in thoracic spine (principal); I10 Essential (primary) hypertension; E78.00 Pure hypercholesterolemia, unspecified; I25.10 Atherosclerotic heart disease of native coronary artery without angina pectoris; K21.9 Gastro-esophageal reflux disease without esophagitis; J44.9 Chronic obstructive pulmonary disease, unspecified; Z86.73 Personal history of transient ischemic attack (TIA), and cerebral infarction without residual deficits; Z87.891 Personal history of nicotine dependence; Z79.899 Other long term (current) drug therapy; Z91.030 Bee allergy status; Z88.8 Allergy status to other drugs, medicaments and biological substances
CPT/HCPCS: 36415; 71045; 71045-26; 80053; 83735; 83880; 85007; 85027; 85379; 85610; 85730; 99283; 99283-25

== ENCOUNTER 2020-08-25 12:07 | Observation (INO) | payer MEDICARE, OTHER ==
--- NOTE | 2020-08-25 12:51 | EDM.PDOC ---
ED HPI GENERAL MEDICAL PROBLEM - General Chief Complaint: Neuro Symptoms/Deficits Stated Complaint: MEMORY LOSS Time Seen by Provider: 08/25/20 12:07 - History of Present Illness INITIAL COMMENTS - FREE TEXT/NARRATIVE: 85-year-old male brought in to the emergency room by family after some change in mental status. The patient was doing good this morning approximately 11:10, last known normal was just prior to this. He developed some short-term memory loss. He could not recall some of the stuff he had done this weekend he did not recognize his son's truck. Has had a history of a TIA and a little stroke in the past the little stroke in the past left him with some residual weakness in the right leg. He has had a stroke work-up at the [facility]. Left Shoulder Pain Score (Numeric/FACES): 6 - Related Data Allergies Allergy/AdvReac Type Severity Reaction Status Date / Time cortisone Allergy Rash Verified 08/25/20 12:24 diphenhydramine Allergy Difficulty Verified 08/25/20 12:24 [From Benadryl] Breathing venom-honey bee Allergy Difficulty Verified 08/25/20 12:24 [bee venom (honey bee)] Breathing Home Meds: Home Meds Cholecalciferol (Vitamin D3) [Vitamin D] 2,000 unit PO DAILY 02/13/14 [History] EPINEPHrine [Epipen] 0.3 mg IM ASDIRECTED PRN 02/13/14 [History] Enalapril [Vasotec] 5 mg PO DAILY 02/13/14 [History] Imipramine HCl [Imipramine] 50 mg PO BEDTIME 02/13/14 [History] hydroCHLOROthiazide [Hydrochlorothiazide] 50 mg PO DAILY 02/13/14 [History] rOPINIRole HCl [Requip] 0.5 mg PO DAILY 02/13/14 [History] Cyanocobalamin (Vitamin B12) [Vitamin B12] 1,000 mcg PO DAILY 08/04/17 [History] atorvaSTATin Calcium [Atorvastatin Calcium] 80 mg PO BEDTIME 08/04/17 [History] guaiFENesin [Guaifenesin ER] 60 mg PO DAILY 08/04/17 [History] Albuterol Sulfate [Proair Respiclick] 2 puff IH Q6HR 08/25/20 [History] Aspirin [Aspirin EC] 81 mg PO DAILY 08/25/20 [History] Fluticasone Propionate [Flovent] 1 puff YIFAN DAILY 08/25/20 [History] Past Medical History HEENT History: Reports: Cataract, Impaired Vision Cardiovascular History: Reports: Aneurysm, CAD, High Cholesterol, Hypertension, Other (See Below) Other Cardiovascular History: CVD Respiratory History: Reports: Asthma, COPD Gastrointestinal History: Reports: Gastritis, GERD Genitourinary History: Reports: BPH, Retention, Urinary, Other (See Below) Other Genitourinary History: hx prostate cancer with high dose radiation, hematuria Musculoskeletal History: Reports: Arthritis Neurological History: Reports: CVA Psychiatric History: Reports: Other (See Below) Other Psychiatric History: insomnia Hematologic History: Reports: B12 Deficiency Oncologic (Cancer) History: Reports: Basal Cell Carcinoma, Malignant Melanoma, Prostate Dermatologic History: Reports: Benign Melanoma, Melanoma - Past Surgical History HEENT Surgical History: Reports: Tonsillectomy Cardiovascular Surgical History: Reports: AAA Repair, Carotid Stents Respiratory Surgical History: Reports: None GI Surgical History: Reports: Appendectomy Male Surgical History: Reports: TURP-Transurethral Resection of Prostate Neurological Surgical History: Reports: Other (See Below) Other Neurological Surgeries/Procedures: carotid endartectomy Oncologic Surgical History: Reports: None Dermatological Surgical History: Reports: Skin Biopsy Social & Family History - Family History Family Medical History: Noncontributory - Tobacco Use Tobacco Use Status *Q: Former Tobacco User Years of Tobacco use: 20 Used Tobacco, but Quit: Yes Month/Year Tobacco Last Used: 1979 - Caffeine Use Caffeine Use: Reports: Soda - Living Situation & Occupation Living situation: Reports: , with Spouse Occupation: Retired ED ROS GENERAL - Review of Systems Review Of Systems: See Below Constitutional: Reports: No Symptoms HEENT: Reports: No Symptoms Respiratory: Reports: No Symptoms Cardiovascular: Reports: No Symptoms Endocrine: Reports: No Symptoms GI/Abdominal: Reports: No Symptoms : Reports: No Symptoms Musculoskeletal: Reports: Other (He had some left shoulder pain this morning this seems to have improved.) Skin: Reports: No Symptoms Neurological: Reports: Other (Transient short-term partial memory impairment he is at baseline now.) Psychiatric: Reports: No Symptoms Hematologic/Lymphatic: Reports: No Symptoms Immunologic: Reports: No Symptoms ED EXAM, NEURO - Physical Exam Exam: See Below Exam Limited By: No Limitations General Appearance: Alert, No Apparent Distress Eye Exam: Bilateral Eye: Normal Inspection, PERRL Ears: Normal External Exam, Normal Canal, Hearing Grossly Normal, Normal TMs Nose: Normal Inspection, Normal Mucosa, No Blood Throat/Mouth: Normal Inspection, Normal Lips, Normal Teeth, Normal Gums, Normal Oropharynx, Normal Voice, No Airway Compromise Head Exam: Atraumatic, Normocephalic Neck: Normal Inspection, Supple, Non-Tender, Full Range of Motion. No: Lymphadenopathy (L), Lymphadenopathy (R) Respiratory/Chest: No Respiratory Distress, Lungs Clear, Normal Breath Sounds Cardiovascular: Regular Rate, Rhythm, No Edema, No Murmur GI/Abdominal: Normal Bowel Sounds, Soft, Non-Tender Neurological: Alert, Other (Memory events that the patient had trouble with that the family reported the patient now recalls. He knows what month it is what day it is and what year it is and he is up-to-date on current events.) Back Exam: Normal Inspection. No: CVA Tenderness (L), CVA Tenderness (R) Extremities: Normal Inspection, No Pedal Edema Psychiatric: Normal Affect, Normal Mood Course - Vital Signs Last Recorded V/S: Last Vital Signs Temp 36.7 C 08/25/20 12:24 Pulse 79 08/25/20 12:24 Resp 20 08/25/20 12:24 BP 144/78 H 08/25/20 12:24 Pulse Ox 89 L 08/25/20 12:24 - Orders/Labs/Meds Orders: Active Orders 24 hr Category Date Time Status EKG Documentation Completion [RC] STAT Care 08/25/20 12:26 Active Influenza Vaccine Charge [RC] .DISCHARGE Care 08/25/20 14:55 Active Ang Head [CT] Stat Exams 08/25/20 13:59 Taken Chest 1V Frontal [CR] Stat Exams 08/25/20 12:26 Taken Head wo Cont [CT] Stat Exams 08/25/20 12:26 Taken Potassium Chloride [Klor-Con M20] Med 08/25/20 15:45 Once 40 meq PO ONETIME ONE Sodium Chloride 0.9% [Normal Saline] 100 ml Med 08/25/20 14:15 Active IV ASDIRECTED Sodium Chloride 0.9% [Saline Flush] Med 08/25/20 14:03 Active 10 ml FLUSH ONETIME PRN Medication Orders Sodium Chloride (Normal Saline) 100 mls @ 75 mls/hr IV ASDIRECTED GEORGE Last Admin: 08/25/20 14:44 Dose: 75 mls/hr Documented by: LIZETT Sodium Chloride (Saline Flush) 10 ml FLUSH ONETIME PRN PRN Reason: IV FLUSH Last Admin: 08/25/20 14:43 Dose: 10 ml Documented by: LIZETT Labs: Laboratory Tests 08/25/20 08/25/20 08/25/20 Range/Units 12:26 12:26 12:26 WBC 6.45 (4.23-9.07) K/mm3 RBC 5.50 (4.63-6.08) M/mm3 Hgb 14.8 (13.7-17.5) gm/dl Hct 47.0 (40.1-51.0) % MCV 85.5 (79.0-92.2) fl MCH 26.9 (25.7-32.2) pg MCHC 31.5 L (32.2-35.5) g/dl RDW Std Deviation 51.6 H (35.1-43.9) fL Plt Count 196 (163-337) K/mm3 MPV 9.7 (9.4-12.3) fl Neut % (Auto) 83.0 H (34.0-67.9) % Lymph % (Auto) 10.4 L (21.8-53.1) % [place] % (Auto) 5.6 (5.3-12.2) % Eos % (Auto) 0.8 (0.8-7.0) Baso % (Auto) 0.2 (0.1-1.2) % Neut # (Auto) 5.36 (1.78-5.38) K/mm3 Lymph # (Auto) 0.67 L (1.32-3.57) K/mm3 [place] # (Auto) 0.36 (0.30-0.82) K/mm3 Eos # (Auto) 0.05 (0.04-0.54) K/mm3 Baso # (Auto) 0.01 (0.01-0.08) K/mm3 PT 10.7 (9.7-11.7) SECONDS INR 1.00 APTT 28 (22-31) SECONDS Sodium 140 (136-145) mEq/L Potassium 3.4 L (3.5-5.1) mEq/L Chloride 101 (98-107) mEq/L Carbon Dioxide 33 H (21-32) mEq/L Anion Gap 9.4 (5-15) BUN 26 H (7-18) mg/dL Creatinine 1.3 (0.7-1.3) mg/dL Est Cr Clr Drug Dosing TNP Estimated GFR (MDRD) 53 (>60) mL/min BUN/Creatinine Ratio 20.0 H (14-18) Glucose 139 H (83-115) mg/dL Calcium 9.6 (8.5-10.1) mg/dL Total Bilirubin 0.6 (0.2-1.0) mg/dL AST 29 (15-37) U/L ALT 34 (16-63) U/L Alkaline Phosphatase 72 (46-116) U/L Troponin I < 0.017 (0.00-0.056) ng/mL Total Protein 6.9 (6.4-8.2) g/dl Albumin 3.5 (3.4-5.0) g/dl Globulin 3.4 gm/dL Albumin/Globulin Ratio 1.0 (1-2) Urine Color (Yellow) Urine Appearance (Clear) Urine pH (5.0-8.0) Ur Specific [place] (1.005-1.030) Urine Protein (Negative) Urine Glucose (UA) (Negative) Urine Ketones (Negative) Urine Occult Blood (Negative) Urine Nitrite (Negative) Urine Bilirubin (Negative) Urine Urobilinogen (0.2-1.0) Ur Leukocyte Esterase (Negative) Urine RBC (0-5) /hpf Urine WBC (0-5) /hpf Ur Squamous Epith Cells (0-5) /hpf Urine Bacteria (FEW) /hpf Urine Mucus (FEW) /hpf 08/25/20 Range/Units 14:27 WBC (4.23-9.07) K/mm3 RBC (4.63-6.08) M/mm3 Hgb (13.7-17.5) gm/dl Hct (40.1-51.0) % MCV (79.0-92.2) fl MCH (25.7-32.2) pg MCHC (32.2-35.5) g/dl RDW Std Deviation (35.1-43.9) fL Plt Count (163-337) K/mm3 MPV (9.4-12.3) fl Neut % (Auto) (34.0-67.9) % Lymph % (Auto) (21.8-53.1) % [place] % (Auto) (5.3-12.2) % Eos % (Auto) (0.8-7.0) Baso % (Auto) (0.1-1.2) % Neut # (Auto) (1.78-5.38) K/mm3 Lymph # (Auto) (1.32-3.57) K/mm3 [place] # (Auto) (0.30-0.82) K/mm3 Eos # (Auto) (0.04-0.54) K/mm3 Baso # (Auto) (0.01-0.08) K/mm3 PT (9.7-11.7) SECONDS INR APTT (22-31) SECONDS Sodium (136-145) mEq/L Potassium (3.5-5.1) mEq/L Chloride (98-107) mEq/L Carbon Dioxide (21-32) mEq/L Anion Gap (5-15) BUN (7-18) mg/dL Creatinine (0.7-1.3) mg/dL Est Cr Clr Drug Dosing Estimated GFR (MDRD) (>60) mL/min BUN/Creatinine Ratio (14-18) Glucose (83-115) mg/dL Calcium (8.5-10.1) mg/dL Total Bilirubin (0.2-1.0) mg/dL AST (15-37) U/L ALT (16-63) U/L Alkaline Phosphatase (46-116) U/L Troponin I (0.00-0.056) ng/mL Total Protein (6.4-8.2) g/dl Albumin (3.4-5.0) g/dl Globulin gm/dL Albumin/Globulin Ratio (1-2) Urine Color Yellow (Yellow) Urine Appearance Clear (Clear) Urine pH 5.5 (5.0-8.0) Ur Specific [place] 1.025 (1.005-1.030) Urine Protein 2+ H (Negative) Urine Glucose (UA) Negative (Negative) Urine Ketones Negative (Negative) Urine Occult Blood Negative (Negative) Urine Nitrite Negative (Negative) Urine Bilirubin Negative (Negative) Urine Urobilinogen 1.0 (0.2-1.0) Ur Leukocyte Esterase Negative (Negative) Urine RBC 0-5 (0-5) /hpf Urine WBC 0-5 (0-5) /hpf Ur Squamous Epith Cells 0-5 (0-5) /hpf Urine Bacteria Few (FEW) /hpf Urine Mucus Not seen (FEW) /hpf Meds: Medications Generic Name Dose Route Start Last Admin Trade Name Freq PRN Reason Stop Dose Admin Sodium Chloride 100 mls @ 75 mls/hr 08/25/20 14:15 08/25/20 14:44 Normal Saline IV 75 mls/hr ASDIRECTED GEORGE Administration Sodium Chloride 10 ml 08/25/20 14:03 08/25/20 14:43 Saline Flush FLUSH 10 ml ONETIME PRN Administration IV FLUSH Discontinued Medications Generic Name Dose Route Start Last Admin Trade Name Freq PRN Reason Stop Dose Admin Sodium Chloride 500 mls @ 999 mls/hr 08/25/20 13:59 08/25/20 14:51 Normal Saline IV 08/25/20 14:29 999 mls/hr .BOLUS ONE Administration Influenza Virus Vaccine 240 mcg 08/25/20 15:00 08/25/20 15:16 Fluzone High-Dose Quad 2020-21 IM 08/25/20 15:01 240 mcg .ONCE ONE Administration Iopamidol 100 ml 08/25/20 14:03 08/25/20 14:43 Isovue-370 (76%) IVPUSH 08/25/20 14:04 100 ml ONETIME ONE Administration - Re-Assessments/Exams Free Text/Narrative Re-Assessment/Exam: 08/25/20 13:18 Discussed the patient's case with Dr. Matt with virtual radiology. 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 I then discussed the patient's case with Dr. Mirela Carballo neurologist at [facility] and as the patient is back to baseline at this point he can be worked up here. And he does agree on checking a CTA at this time as perfusion studies would not be indicated. I am waiting on his chemistries before ordering the CTA but anticipate to have them here shortly 08/25/20 14:01 Troponin is normal he has some renal insufficiency but mild with a creatinine of 1.3. We will give him a fluid bolus and then check a CTA. 08/25/20 16:09 CT angiogram of the head was negative for aneurysm.. I went back and interviewed the patient and now he is having memory problems again he cannot remember how he got here or some of the events of today. I discussed the situation with Dr. Mirela Carballo, neurologist at [facility] in [place] who agreed the patient needs an MRI but thought overall with really unlikely not impossible for a CVA or TIA to present like this at this time a day I cannot get an MRI here and there is no beds available in [place] we will place the patient on observation here anticipating an MRI in the morning. I am not absolutely certain the patient is taking his baby aspirin a day we cannot verify this but I stressed the importance of this to the family. I discussed the situation with Dr. Moran the patient will be placed on observation anticipating an MRI in the morning. Departure - Departure Time of Disposition: 16:14 Disposition: Refer to Observation Clinical Impression: Transient memory loss - Discharge Information Referrals: Renzo Barber Jr, MD [Primary Care Provider] - Forms: ED Department Discharge Sepsis Event Note (ED) - Evaluation Sepsis Screening Result: No Definite Risk - Focused Exam Vital Signs: Vital Signs Temp Pulse Resp BP Pulse Ox 08/25/20 12:24 36.7 C 79 20 144/78 H 89 L - My Orders Last 24 Hours: My Active Orders 08/25/20 12:26 EKG Documentation Completion [RC] STAT Chest 1V Frontal [CR] Stat Head wo Cont [CT] Stat 08/25/20 13:59 Ang Head [CT] Stat 08/25/20 14:03 Sodium Chloride 0.9% [Saline Flush] 10 ml FLUSH ONETIME PRN 08/25/20 14:15 Sodium Chloride 0.9% [Normal Saline] 100 ml IV ASDIRECTED 08/25/20 14:55 Influenza Vaccine Charge [RC] .DISCHARGE 08/25/20 15:45 Potassium Chloride [Klor-Con M20] 40 meq PO ONETIME ONE - Assessment/Plan Last 24 Hours: My Active Orders 08/25/20 12:26 EKG Documentation Completion [RC] STAT Chest 1V Frontal [CR] Stat Head wo Cont [CT] Stat 08/25/20 13:59 Ang Head [CT] Stat 08/25/20 14:03 Sodium Chloride 0.9% [Saline Flush] 10 ml FLUSH ONETIME PRN 08/25/20 14:15 Sodium Chloride 0.9% [Normal Saline] 100 ml IV ASDIRECTED 08/25/20 14:55 Influenza Vaccine Charge [RC] .DISCHARGE 08/25/20 15:45 Potassium Chloride [Klor-Con M20] 40 meq PO ONETIME ONE
[2020-08-25] MEDS ORDERED: Sodium Chloride 0.9% 500 ML IV ONE (13:59)
[2020-08-25] MEDS ORDERED: Sodium Chloride 0.9% 10 ML Syringe FLUSH PRN (14:03)
[2020-08-25] MEDS ORDERED: Iopamidol 755 Mg/ML 100 ML Bottle IVPUSH ONE (14:03)
[2020-08-25] MEDS ORDERED: Sodium Chloride 0.9% 100 ML IV SCH (14:15)
[2020-08-25] MEDS ORDERED: Lactated Ringers 1,000 ML IV SCH (14:45)
[2020-08-25] MEDS ORDERED: FLU Vacc QV2020-21(65YR UP)/PF 240 MCG/0.7 ML Syringe IM ONE (15:00)
[2020-08-25] MEDS ORDERED: Potassium Chloride 20 MEQ Tab.ER PO ONE (15:45)
[2020-08-25] MEDS ORDERED: oxyCODONE 5 MG Tab PO PRN (16:32)
[2020-08-25] MEDS ORDERED: Bisacodyl 5 MG Tab PO PRN (16:32)
[2020-08-25] MEDS ORDERED: Ondansetron 4 MG Tab.DIS PO PRN (16:32)
[2020-08-25] MEDS ORDERED: Albuterol/Ipratropium 3.0-0.5 MG/3 ML Neb Soln NEB PRN (16:32)
[2020-08-25] MEDS ORDERED: Acetaminophen 325 MG Tab PO PRN (16:32)
[2020-08-25] MEDS ORDERED: Docusate Sodium 100 MG Cap PO PRN (16:32)
--- NOTE | 2020-08-25 16:45 | PCM.HP.2 ---
H&P History of Present Illness - General Date of Service: 08/25/20 Admit Problem/Dx: Admission Diagnosis/Problem Admission Diagnosis/Problem TIA, Transient ischemic attack Source of Information: Patient History Limitations: Reports: No Limitations - History of Present Illness Initial Comments - Free Text/Narative: The patient is an 85-year-old gentleman who was brought into the emergency room by family out of concern for altered mental status. The patient says that he seymour s no memory of what happened he just remembers waking up in the emergency room. Patient says that this happened previously about 5 years ago. The patient at this time has denied any pain. He has had no specific aggravating or relieving factors. 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 He is also able to relate that he has an abdominal aortic aneurysm. The patient also has been compliant with his medications for his hypertension and his hyperlipidemia. The patient has been in his usual state of health and has no other complaints today. Onset of Symptoms: Reports: Unknown/Unsure Improves with: Reports: None Worsens with: Reports: None Associated Symptoms: Reports: No Other Symptoms Left Shoulder Pain Score (Numeric/FACES): 6 - Related Data Allergies/Adverse Reactions: Allergies Allergy/AdvReac Type Severity Reaction Status Date / Time cortisone Allergy Rash Verified 08/25/20 19:02 diphenhydramine Allergy Difficulty Verified 08/25/20 19:02 [From Benadryl] Breathing venom-honey bee Allergy Difficulty Verified 08/25/20 19:02 [bee venom (honey bee)] Breathing Home Medications: Home Meds Cholecalciferol (Vitamin D3) [Vitamin D] 1,000 unit PO BID 02/13/14 [History] EPINEPHrine [Epipen] 0.3 mg IM ASDIRECTED PRN 02/13/14 [History] Enalapril [Vasotec] 5 mg PO DAILY 02/13/14 [History] hydroCHLOROthiazide [Hydrochlorothiazide] 50 mg PO DAILY 02/13/14 [History] Cyanocobalamin (Vitamin B12) [Vitamin B12] 1,000 mcg PO DAILY 08/04/17 [History] guaiFENesin [Guaifenesin ER] 600 mg PO DAILY 08/04/17 [History] Albuterol Sulfate [Proair Respiclick] 2 puff IH Q6HR 08/25/20 [History] Aspirin [Aspirin EC] 81 mg PO DAILY 08/25/20 [History] Budesonide/Formoterol [Symbicort 160-4.5 MCG] 2 puff INH BID 08/25/20 [History] Cinnamon Bark [Cinnamon] 500 mg PO DAILY 08/25/20 [History] Clopidogrel [Plavix] 75 mg PO DAILY 08/25/20 [History] Docusate Sodium 100 mg PO DAILY PRN 08/25/20 [History] Meclizine HCl [Motion Sickness Relief] 25 mg PO DAILY PRN 08/25/20 [History] Non-Formulary Medication [NF Drug] 1 tab PO DAILY 08/25/20 [History] Non-Formulary Medication [NF Drug] 1 tab PO DAILY PRN 08/25/20 [History] Rosuvastatin Calcium 40 mg PO BEDTIME 08/25/20 [History] Tiotropium [place] [Spiriva Respimat] 2.5 mcg INH DAILY 08/25/20 [History] Past Medical History HEENT History: Reports: Cataract, Impaired Vision Cardiovascular History: Reports: Aneurysm, CAD, High Cholesterol, Hypertension, Other (See Below) Other Cardiovascular History: CVD Respiratory History: Reports: Asthma, COPD Gastrointestinal History: Reports: Gastritis, GERD Genitourinary History: Reports: BPH, Retention, Urinary, Other (See Below) Other Genitourinary History: hx prostate cancer with high dose radiation, hematuria Musculoskeletal History: Reports: Arthritis Neurological History: Reports: CVA Psychiatric History: Reports: Other (See Below) Other Psychiatric History: insomnia Hematologic History: Reports: B12 Deficiency Oncologic (Cancer) History: Reports: Basal Cell Carcinoma, Malignant Melanoma, Prostate Dermatologic History: Reports: Benign Melanoma, Melanoma - Past Surgical History HEENT Surgical History: Reports: Tonsillectomy Cardiovascular Surgical History: Reports: AAA Repair, Carotid Stents Respiratory Surgical History: Reports: None GI Surgical History: Reports: Appendectomy Male Surgical History: Reports: TURP-Transurethral Resection of Prostate Neurological Surgical History: Reports: Other (See Below) Other Neurological Surgeries/Procedures: carotid endartectomy Oncologic Surgical History: Reports: None Dermatological Surgical History: Reports: Skin Biopsy Social & Family History - Family History Family Medical History: Noncontributory - Tobacco Use Tobacco Use Status *Q: Former Tobacco User Years of Tobacco use: 20 Used Tobacco, but Quit: Yes Month/Year Tobacco Last Used: 1979 - Caffeine Use Caffeine Use: Reports: Soda - Living Situation & Occupation Living situation: Reports: , with Spouse Occupation: Retired H&P Review of Systems - Review of Systems: Review Of Systems: See Below General: Reports: Weakness HEENT: Reports: Hearing Changes (Chronic hearing loss) Pulmonary: Reports: No Symptoms Cardiovascular: Reports: No Symptoms Gastrointestinal: Reports: No Symptoms Genitourinary: Reports: No Symptoms Musculoskeletal: Reports: No Symptoms Skin: Reports: No Symptoms Psychiatric: Reports: No Symptoms Neurological: Reports: Weakness Hematologic/Lymphatic: Reports: No Symptoms Immunologic: Reports: No Symptoms Exam - Exam Exam: See Below - Vital Signs Vital Signs: Last Vital Signs Temp 36.7 C 08/25/20 12:24 Pulse 79 08/25/20 12:24 Resp 20 08/25/20 12:24 BP 144/78 H 08/25/20 12:24 Pulse Ox 89 L 08/25/20 12:24 - Exam Quality Assessment: Supplemental Oxygen General: Alert, Oriented, Cooperative HEENT: Conjunctiva Clear, EACs Clear, EOMI, Mucosa Moist & [place], Pupils Equal. No: Hearing Intact (Decreased hearing) Neck: Supple, Trachea Midline Lungs: Clear to Auscultation, Normal Respiratory Effort Cardiovascular: Regular Rate, Regular Rhythm GI/Abdominal Exam: Normal Bowel Sounds, Soft, Non-Tender, No Distention (Male) Exam: Deferred Rectal (Males) Exam: Deferred Back Exam: Normal Inspection, Full Range of Motion (Age-appropriate) Extremities: Normal Inspection, Normal Range of Motion, No Pedal Edema Skin: Warm, Dry, Intact Neurological: Cranial Nerves Intact, Normal Speech, Normal Tone. No: Focal Deficit Neuro Extensive - Mental Status: Alert, Oriented x3, Normal Mood/Affect, Normal Cognition, Memory Intact Neuro Extensive - Motor, Sensory, Reflexes: CN II-XII Intact Psychiatric: Alert, Normal Affect, Normal Mood - Patient Data Lab Results Last 24 hrs: Laboratory Results - last 24 hr 08/25/20 08/25/20 08/25/20 Range/Units 12:26 12:26 12:26 WBC 6.45 (4.23-9.07) K/mm3 RBC 5.50 (4.63-6.08) M/mm3 Hgb 14.8 (13.7-17.5) gm/dl Hct 47.0 (40.1-51.0) % MCV 85.5 (79.0-92.2) fl MCH 26.9 (25.7-32.2) pg MCHC 31.5 L (32.2-35.5) g/dl RDW Std Deviation 51.6 H (35.1-43.9) fL Plt Count 196 (163-337) K/mm3 MPV 9.7 (9.4-12.3) fl Neut % (Auto) 83.0 H (34.0-67.9) % Lymph % (Auto) 10.4 L (21.8-53.1) % [place] % (Auto) 5.6 (5.3-12.2) % Eos % (Auto) 0.8 (0.8-7.0) Baso % (Auto) 0.2 (0.1-1.2) % Neut # (Auto) 5.36 (1.78-5.38) K/mm3 Lymph # (Auto) 0.67 L (1.32-3.57) K/mm3 [place] # (Auto) 0.36 (0.30-0.82) K/mm3 Eos # (Auto) 0.05 (0.04-0.54) K/mm3 Baso # (Auto) 0.01 (0.01-0.08) K/mm3 PT 10.7 (9.7-11.7) SECONDS INR 1.00 APTT 28 (22-31) SECONDS Sodium 140 (136-145) mEq/L Potassium 3.4 L (3.5-5.1) mEq/L Chloride 101 (98-107) mEq/L Carbon Dioxide 33 H (21-32) mEq/L Anion Gap 9.4 (5-15) BUN 26 H (7-18) mg/dL Creatinine 1.3 (0.7-1.3) mg/dL Est Cr Clr Drug Dosing TNP Estimated GFR (MDRD) 53 (>60) mL/min BUN/Creatinine Ratio 20.0 H (14-18) Glucose 139 H (83-115) mg/dL Calcium 9.6 (8.5-10.1) mg/dL Total Bilirubin 0.6 (0.2-1.0) mg/dL AST 29 (15-37) U/L ALT 34 (16-63) U/L Alkaline Phosphatase 72 (46-116) U/L Troponin I < 0.017 (0.00-0.056) ng/mL Total Protein 6.9 (6.4-8.2) g/dl Albumin 3.5 (3.4-5.0) g/dl Globulin 3.4 gm/dL Albumin/Globulin Ratio 1.0 (1-2) Urine Color (Yellow) Urine Appearance (Clear) Urine pH (5.0-8.0) Ur Specific [place] (1.005-1.030) Urine Protein (Negative) Urine Glucose (UA) (Negative) Urine Ketones (Negative) Urine Occult Blood (Negative) Urine Nitrite (Negative) Urine Bilirubin (Negative) Urine Urobilinogen (0.2-1.0) Ur Leukocyte Esterase (Negative) Urine RBC (0-5) /hpf Urine WBC (0-5) /hpf Ur Squamous Epith Cells (0-5) /hpf Urine Bacteria (FEW) /hpf Urine Mucus (FEW) /hpf 08/25/20 Range/Units 14:27 WBC (4.23-9.07) K/mm3 RBC (4.63-6.08) M/mm3 Hgb (13.7-17.5) gm/dl Hct (40.1-51.0) % MCV (79.0-92.2) fl MCH (25.7-32.2) pg MCHC (32.2-35.5) g/dl RDW Std Deviation (35.1-43.9) fL Plt Count (163-337) K/mm3 MPV (9.4-12.3) fl Neut % (Auto) (34.0-67.9) % Lymph % (Auto) (21.8-53.1) % [place] % (Auto) (5.3-12.2) % Eos % (Auto) (0.8-7.0) Baso % (Auto) (0.1-1.2) % Neut # (Auto) (1.78-5.38) K/mm3 Lymph # (Auto) (1.32-3.57) K/mm3 [place] # (Auto) (0.30-0.82) K/mm3 Eos # (Auto) (0.04-0.54) K/mm3 Baso # (Auto) (0.01-0.08) K/mm3 PT (9.7-11.7) SECONDS INR APTT (22-31) SECONDS Sodium (136-145) mEq/L Potassium (3.5-5.1) mEq/L Chloride (98-107) mEq/L Carbon Dioxide (21-32) mEq/L Anion Gap (5-15) BUN (7-18) mg/dL Creatinine (0.7-1.3) mg/dL Est Cr Clr Drug Dosing Estimated GFR (MDRD) (>60) mL/min BUN/Creatinine Ratio (14-18) Glucose (83-115) mg/dL Calcium (8.5-10.1) mg/dL Total Bilirubin (0.2-1.0) mg/dL AST (15-37) U/L ALT (16-63) U/L Alkaline Phosphatase (46-116) U/L Troponin I (0.00-0.056) ng/mL Total Protein (6.4-8.2) g/dl Albumin (3.4-5.0) g/dl Globulin gm/dL Albumin/Globulin Ratio (1-2) Urine Color Yellow (Yellow) Urine Appearance Clear (Clear) Urine pH 5.5 (5.0-8.0) Ur Specific [place] 1.025 (1.005-1.030) Urine Protein 2+ H (Negative) Urine Glucose (UA) Negative (Negative) Urine Ketones Negative (Negative) Urine Occult Blood Negative (Negative) Urine Nitrite Negative (Negative) Urine Bilirubin Negative (Negative) Urine Urobilinogen 1.0 (0.2-1.0) Ur Leukocyte Esterase Negative (Negative) Urine RBC 0-5 (0-5) /hpf Urine WBC 0-5 (0-5) /hpf Ur Squamous Epith Cells 0-5 (0-5) /hpf Urine Bacteria Few (FEW) /hpf Urine Mucus Not seen (FEW) /hpf Result Diagrams: 08/26/20 05:54 08/26/20 05:54 Sepsis Event Note - Evaluation Sepsis Screening Result: No Definite Risk - Focused Exam Vital Signs: Vital Signs Temp Pulse Resp BP Pulse Ox 08/25/20 12:24 36.7 C 79 20 144/78 H 89 L - Problem List (1) Transient memory loss SNOMED Code(s): 488353519 ICD Code: R41.3 - OTHER AMNESIA Status: Acute Priority: High Current Visit: Yes (2) Abdominal aortic aneurysm (AAA) 3.0 cm to 5.5 cm in diameter in male SNOMED Code(s): 186377369 ICD Code: I71.4 - ABDOMINAL AORTIC ANEURYSM, WITHOUT RUPTURE Status: Chronic Priority: Medium Current Visit: Yes (3) Hypertension SNOMED Code(s): 87033868 ICD Code: I10 - ESSENTIAL (PRIMARY) HYPERTENSION Status: Chronic Priority: Medium Current Visit: Yes Qualifiers: Hypertension type: essential hypertension Qualified Code(s): I10 - Essential (primary) hypertension Problem List Initiated/Reviewed/Updated: Yes Orders Last 24hrs: Active Orders 24 hr Category Date Time Status Patient Status [ADT] Routine ADT 08/25/20 16:32 Ordered Cardiac Monitoring [RC] CONTINUOUS Care 08/25/20 16:36 Ordered EKG Documentation Completion [RC] STAT Care 08/25/20 12:26 Active Influenza Vaccine Charge [RC] .DISCHARGE Care 08/25/20 14:55 Active Neuro Check [RC] BID Care 08/25/20 16:44 Ordered Oxygen Therapy [RC] PRN Care 08/25/20 16:32 Ordered RT Aerosol Therapy [RC] ASDIRECTED Care 08/25/20 16:38 Ordered Up With Assistance [RC] ASDIRECTED Care 08/25/20 16:32 Ordered VTE/DVT Education [RC] PER UNIT ROUTINE Care 08/25/20 16:32 Ordered Vital Signs [RC] Q4H Care 08/25/20 16:32 Ordered OT Evaluation and Treatment [CONS] Routine Cons 08/25/20 16:32 Ordered PT Evaluation and Treatment [CONS] Routine Cons 08/25/20 16:32 Ordered Heart Healthy Diet [DIET] Diet 08/25/20 Dinner Ordered [place] [CT] Stat Exams 08/25/20 13:59 Taken Ang [place] w wo Cont [MR] Urgent Exams 08/26/20 08:00 Ordered Chest 1V Frontal [CR] Stat Exams 08/25/20 12:26 Taken Head wo Cont [CT] Stat Exams 08/25/20 12:26 Taken CBC WITH AUTO DIFF [HEME] AM Lab 08/26/20 05:11 Ordered COMPREHENSIVE METABOLIC PN,CMP [CHEM] AM Lab 08/26/20 05:11 Ordered CORONAVIRUS COVID-19 ANGELA [MOLEC] Stat Lab 08/25/20 16:30 Received MAGNESIUM [CHEM] AM Lab 08/26/20 05:11 Ordered PHOSPHORUS [CHEM] AM Lab 08/26/20 05:11 Ordered Acetaminophen [TylenoL] Med 08/25/20 16:32 Ordered 650 mg PO Q4H PRN Albuterol/Ipratropium [DuoNeb 3.0-0.5 MG/3 ML] Med 08/25/20 16:32 Ordered 3 ml NEB Q4H PRN Aspirin [Halfprin] Med 08/26/20 09:00 Ordered 81 mg PO DAILY Cholecalciferol (Vitamin D3) [Vitamin D3] Med 08/26/20 09:00 Ordered 2,000 unit PO DAILY Cyanocobalamin (Vitamin B12) [Vitamin B12] Med 08/26/20 09:00 Ordered 1,000 mcg PO DAILY Docusate Sodium [Colace] Med 08/25/20 16:32 Ordered 100 mg PO BID PRN Enalapril [Vasotec] Med 08/26/20 09:00 Ordered 5 mg PO DAILY Enoxaparin [Lovenox] Med 08/25/20 16:45 Ordered 30 mg SUBCUT DAILY Fluticasone Propionate [Flovent] Med 08/26/20 09:00 Ordered 1 puff YIFAN DAILY Imipramine HCl Med 08/25/20 21:00 Ordered 50 mg PO BEDTIME Ondansetron [Zofran ODT] Med 08/25/20 16:32 Ordered 4 mg PO Q6H PRN Sodium Chloride 0.9% [Normal Saline] 1,000 ml Med 08/25/20 16:45 Ordered IV ASDIRECTED Sodium Chloride 0.9% [Normal Saline] 100 ml Med 08/25/20 14:15 Active IV ASDIRECTED Sodium Chloride 0.9% [Saline Flush] Med 08/25/20 14:03 Active 10 ml FLUSH ONETIME PRN Temazepam [Restoril] Med 08/25/20 16:32 Ordered 15 mg PO BEDTIME PRN atorvaSTATin Calcium [Atorvastatin Calcium] Med 08/25/20 21:00 Ordered 80 mg PO BEDTIME bisacodyL [Dulcolax] Med 08/25/20 16:32 Ordered 5 mg PO DAILY PRN hydroCHLOROthiazide [Hydrochlorothiazide] Med 08/26/20 09:00 Ordered 50 mg PO DAILY oxyCODONE Med 08/25/20 16:32 Ordered 5 mg PO Q4H PRN rOPINIRole HCl Med 08/25/20 16:45 Ordered 0.5 mg PO DAILY Resuscitation Status Routine Resus Stat 08/25/20 16:32 Ordered Medication Orders Acetaminophen (Tylenol) 650 mg PO Q4H PRN PRN Reason: Pain (Mild 1-3)/fever Albuterol/Ipratropium (Duoneb 3.0-0.5 Mg/3 Ml) 3 ml NEB Q4H PRN PRN Reason: Shortness Of Breath/wheezing Aspirin (Halfprin) 81 mg PO DAILY GEORGE Bisacodyl (Dulcolax) 5 mg PO DAILY PRN PRN Reason: Constipation Cyanocobalamin (Vitamin B12) 1,000 mcg PO DAILY GEORGE Docusate Sodium (Colace) 100 mg PO BID PRN PRN Reason: Constipation Enalapril Maleate (Vasotec) 5 mg PO DAILY [facility] Enoxaparin Sodium (Lovenox) 30 mg SUBCUT DAILY [facility] Sodium Chloride (Normal Saline) 100 mls @ 75 mls/hr IV ASDIRECTED GEORGE Last Admin: 08/25/20 14:44 Dose: 75 mls/hr Documented by: LIZETT Sodium Chloride (Normal Saline) 1,000 mls @ 75 mls/hr IV ASDIRECTED [facility] Non-Formulary Medication (Atorvastatin Calcium [Atorvastatin Calcium]) 80 mg PO BEDTIME GEORGE Non-Formulary Medication (Cholecalciferol (Vitamin D3) [Vitamin D3]) 2,000 unit PO DAILY GEORGE Non-Formulary Medication (Fluticasone Propionate [Flovent]) 1 puff YIFAN DAILY GEORGE Non-Formulary Medication (Hydrochlorothiazide [Hydrochlorothiazide]) 50 mg PO DAILY GEORGE Non-Formulary Medication (Imipramine Hcl) 50 mg PO BEDTIME GEORGE Non-Formulary Medication (Ropinirole Hcl) 0.5 mg PO DAILY GEORGE Ondansetron HCl (Zofran Odt) 4 mg PO Q6H PRN PRN Reason: nausea, able to take PO Oxycodone HCl (Oxycodone) 5 mg PO Q4H PRN PRN Reason: Pain (moderate 4-6) Sodium Chloride (Saline Flush) 10 ml FLUSH ONETIME PRN PRN Reason: IV FLUSH Last Admin: 08/25/20 14:43 Dose: 10 ml Documented by: LIZETT Temazepam (Restoril) 15 mg PO BEDTIME PRN PRN Reason: Sleep Assessment/Plan Comment:: Patient is an 85-year-old gentleman who had been admitted to observation. CT angiogram of his head did not show any evidence of aneurysm or acute infarct. It had been suggested to order an MRI of his head and neck in order to exclude any acute injury. This is likely a TIA. I cannot exclude seizure at this point as a cause for the patient's transient memory loss. If everything has been normal and the patient has returned to his baseline he can likely be returned home to follow-up with his primary care physician. He will also have DVT prophylaxis with use with Lovenox. The patient will have a regular diet as tolerated. The patient has been encouraged to ambulate. - Mortality Measure Prognosis:: Good
[2020-08-25] MEDS ORDERED: Enoxaparin 30 MG/0.3 ML Syringe SUBCUT SCH ×2 (17:00→21:00)
[2020-08-25] MEDS ORDERED: Temazepam 15 MG Cap PO PRN (21:00)
[2020-08-25] MEDS ORDERED: rOPINIRole 0.25 MG Tab PO SCH (21:00)
[2020-08-25] MEDS ORDERED: Rosuvastatin 10 MG Tab PO SCH (21:00)
[2020-08-25] MEDS: Sodium Chloride 0.9% 1,000 ML IV SCH (21:30)
[2020-08-26] MEDS: Sodium Chloride 0.9% 1,000 ML IV SCH (05:37)
[2020-08-26] MEDS ORDERED: Docusate Sodium 100 MG Cap PO PRN (08:13)
[2020-08-26] MEDS ORDERED: [UNRECOGNIZED DRUG - OTHER] INH PRN ×2 (08:15→09:27)
[2020-08-26] MEDS ORDERED: HYDROCHLOROTHIAZIDE 50 MG PO SCH (09:00)
[2020-08-26] MEDS ORDERED: Cholecalciferol (Vitamin D3) 25 MCG Tab PO SCH (09:00)
[2020-08-26] MEDS ORDERED: Aspirin 81 MG Tab.EC PO SCH (09:00)
[2020-08-26] MEDS ORDERED: [UNRECOGNIZED DRUG - OTHER] INH SCH ×2 (09:00→09:28)
[2020-08-26] MEDS ORDERED: BUDESONIDE INH SCH ×2 (09:00→09:28)
[2020-08-26] MEDS ORDERED: ENALAPRIL 10 MG PO SCH (09:00)
[2020-08-26] MEDS ORDERED: FLUTICASONE PROPIONATE INH SCH (09:00)
[2020-08-26] MEDS ORDERED: Clopidogrel 75 MG Tab PO SCH (09:00)
[2020-08-26] MEDS ORDERED: Cyanocobalamin (Vitamin B12) 1,000 MCG Tab PO SCH (09:00)
[2020-08-26] MEDS ORDERED: TIOTROPIUM BROMIDE INH SCH ×2 (09:00→09:28)
[2020-08-26 11:43] VITALS: BP 162/75; PULSE 64
--- NOTE | 2020-08-26 13:47 | PCM.DCSUM1 ---
<KoryDori M - Last Filed: 08/26/20 13:47> Discharge Summary - Hospital Course HPI Initial Comments: The patient is an 85-year-old gentleman who was brought into the emergency room by family out of concern for altered mental status. The patient says that he has no memory of what happened he just remembers waking up in the emergency room. Patient says that this happened previously about 5 years ago. The patient at this time has denied any pain. He has had no specific aggravating or relieving factors. 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 He is also able to relate that he has an abdominal aortic aneurysm. The patient also has been compliant with his medications for his hypertension and his hyperlipidemia. The patient has been in his usual state of health and has no other complaints today. Diagnosis: Stroke: No - Discharge Data Discharge Date: 08/26/20 Discharge Disposition: Home, Self-Care 01 Condition: Fair - Referral to Home Health Primary Care Physician: Renzo Barber Jr, MD - Discharge Diagnosis/Problem(s) (1) Transient memory loss SNOMED Code(s): 836158224 ICD Code: R41.3 - OTHER AMNESIA Status: Acute Priority: High Current Visit: Yes (2) Abdominal aortic aneurysm (AAA) 3.0 cm to 5.5 cm in diameter in male SNOMED Code(s): 170500073 ICD Code: I71.4 - ABDOMINAL AORTIC ANEURYSM, WITHOUT RUPTURE Status: Chronic Priority: Medium Current Visit: Yes (3) Hypertension SNOMED Code(s): 02672167 ICD Code: I10 - ESSENTIAL (PRIMARY) HYPERTENSION Status: Chronic Priority: Medium Current Visit: Yes Qualifiers: Hypertension type: essential hypertension Qualified Code(s): I10 - Essen tial (primary) hypertension - Patient Summary/Data Consults: Consultations 08/25/20 16:32 OT Evaluation and Treatment [CONS] Routine PT Evaluation and Treatment [CONS] Routine Hospital Course: 08/25/20 Patient is an 85-year-old gentleman who had been admitted to observation. CT angiogram of his head did not show any evidence of aneurysm or acute infarct. It had been suggested to order an MRI of his head and neck in order to exclude any acute injury. This is likely a TIA. I cannot exclude seizure at this point as a cause for the patient's transient memory loss. If everything has been normal and the patient has returned to his baseline he can likely be returned home to follow-up with his primary care physician. He will also have DVT prophylaxis with use with Lovenox. The patient will have a regular diet as tolerated. The patient has been encouraged to ambulate. 08/26/20 The patient's lab work is unremarkable. MR angiogram of the head without contrast impression per radiology report: No stenosis or occlusion. Mid distal right internal carotid artery stenosis. The patient has had no further episodes of confusion or forgetfulness. He will be discharged to home with follow-up by his primary care physician and neurology. - Patient Instructions Diet: Usual Diet as Tolerated Activity: As Tolerated Other/Special Instructions: May discharge to home. Resume all home medications. Follow-up with Dr. Barber in 1 week. Follow-up with neurology. Should your symptoms return, return to the emergency department immediately. - Discharge Plan *PRESCRIPTION DRUG MONITORING PROGRAM REVIEWED*: No *COPY OF PRESCRIPTION DRUG MONITORING REPORT IN PATIENT CHAVA: No Home Medications: Home Meds Cholecalciferol (Vitamin D3) [Vitamin D3] 1,000 unit PO BID 02/13/14 [History] EPINEPHrine [Epipen] 0.3 mg IM ASDIRECTED PRN 02/13/14 [History] Enalapril [Vasotec] 5 mg PO DAILY 02/13/14 [History] hydroCHLOROthiazide [Hydrochlorothiazide] 50 mg PO DAILY 02/13/14 [History] Cyanocobalamin (Vitamin B12) [Vitamin B12] 1,000 mcg PO DAILY 08/04/17 [History] guaiFENesin [Guaifenesin ER] 600 mg PO DAILY 08/04/17 [History] Albuterol Sulfate [Proair Respiclick] 2 puff IH Q6HR 08/25/20 [History] Aspirin [Aspirin EC] 81 mg PO DAILY 08/25/20 [History] Budesonide/Formoterol [Symbicort 160-4.5 MCG] 2 puff INH BID 08/25/20 [History] Cinnamon Bark [Cinnamon] 500 mg PO DAILY 08/25/20 [History] Clopidogrel [Plavix] 75 mg PO DAILY 08/25/20 [History] Docusate Sodium 100 mg PO DAILY PRN 08/25/20 [History] Meclizine HCl [Motion Sickness Relief] 25 mg PO DAILY PRN 08/25/20 [History] Non-Formulary Medication [NF Drug] 1 tab PO DAILY 08/25/20 [History] Non-Formulary Medication [NF Drug] 1 tab PO DAILY PRN 08/25/20 [History] Rosuvastatin Calcium 40 mg PO BEDTIME 08/25/20 [History] Tiotropium Lengby [Spiriva Respimat] 2.5 mcg INH DAILY 08/25/20 [History] rOPINIRole [Requip] 0.5 mg PO DAILY@2100 tablet 08/26/20 [Rx] Oxygen Therapy Mode: Nasal Cannula Oxygen Flow Rate (L/min): 2 Patient Handouts: Transient Ischemic Attack, [id number] Referrals: Tyrone Packer MD [Ordering Only Provider] - (Neurology follow-up appointment: if needed call [phone] and ask for neurology clinic scheduling. *The [facility] will call you to schedule this appointment. Call them to schedule this appointment if they have not called you within 1 week.) Renzo Barber Jr, MD [Primary Care Provider] - 09/02/20 8:30 am (Please follow up with Dr. Barber on September 02 at 8:30.) - Discharge Summary/Plan Comment DC Time >30 min.: No - General Info Date of Service: 08/26/20 Functional Status: Reports: Pain Controlled, Tolerating Diet, Urinating - Review of Systems General: Reports: No Symptoms HEENT: Reports: No Symptoms Pulmonary: Reports: No Symptoms Cardiovascular: Reports: No Symptoms Gastrointestinal: Reports: No Symptoms Genitourinary: Reports: No Symptoms Musculoskeletal: Reports: No Symptoms Skin: Reports: No Symptoms Neurological: Reports: No Symptoms Psychiatric: Reports: No Symptoms - Patient Data Vitals - Most Recent: Last Vital Signs Temp 97.3 F 08/26/20 11:38 Pulse 64 08/26/20 11:38 Resp 14 08/26/20 11:38 BP 162/75 H 08/26/20 11:35 Pulse Ox 90 L 08/26/20 11:38 Weight - Most Recent: 102.104 kg I&O - Last 24 hours: Intake & Output 08/25/20 08/26/20 08/26/20 22:59 06:59 14:59 Intake Total 1596 120 Output Total 1200 Balance 396 120 Lab Results - Last 24 hrs: Laboratory Results - last 24 hr 08/25/20 08/25/20 08/25/20 Range/Units 12:20 14:27 16:30 WBC (4.23-9.07) K/mm3 RBC (4.63-6.08) M/mm3 Hgb (13.7-17.5) gm/dl Hct (40.1-51.0) % MCV (79.0-92.2) fl MCH (25.7-32.2) pg MCHC (32.2-35.5) g/dl RDW Std Deviation (35.1-43.9) fL Plt Count (163-337) K/mm3 MPV (9.4-12.3) fl Neut % (Auto) (34.0-67.9) % Lymph % (Auto) (21.8-53.1) % Bureau % (Auto) (5.3-12.2) % Eos % (Auto) (0.8-7.0) Baso % (Auto) (0.1-1.2) % Neut # (Auto) (1.78-5.38) K/mm3 Lymph # (Auto) (1.32-3.57) K/mm3 Bureau # (Auto) (0.30-0.82) K/mm3 Eos # (Auto) (0.04-0.54) K/mm3 Baso # (Auto) (0.01-0.08) K/mm3 Sodium (136-145) mEq/L Potassium (3.5-5.1) mEq/L Chloride (98-107) mEq/L Carbon Dioxide (21-32) mEq/L Anion Gap (5-15) BUN (7-18) mg/dL Creatinine (0.7-1.3) mg/dL Est Cr Clr Drug Dosing mL/min Estimated GFR (MDRD) (>60) mL/min BUN/Creatinine Ratio (14-18) Glucose (83-115) mg/dL POC Glucose 155 H (83-110) mg/dL Calcium (8.5-10.1) mg/dL Phosphorus (2.6-4.7) mg/dL Magnesium (1.8-2.4) mg/dl Total Bilirubin (0.2-1.0) mg/dL AST (15-37) U/L ALT (16-63) U/L Alkaline Phosphatase (46-116) U/L Total Protein (6.4-8.2) g/dl Albumin (3.4-5.0) g/dl Globulin gm/dL Albumin/Globulin Ratio (1-2) LDL Cholesterol Direct (<100) mg/dL Urine Color Yellow (Yellow) Urine Appearance Clear (Clear) Urine pH 5.5 (5.0-8.0) Ur Specific [place] 1.025 (1.005-1.030) Urine Protein 2+ H (Negative) Urine Glucose (UA) Negative (Negative) Urine Ketones Negative (Negative) Urine Occult Blood Negative (Negative) Urine Nitrite Negative (Negative) Urine Bilirubin Negative (Negative) Urine Urobilinogen 1.0 (0.2-1.0) Ur Leukocyte Esterase Negative (Negative) Urine RBC 0-5 (0-5) /hpf Urine WBC 0-5 (0-5) /hpf Ur Squamous Epith Cells 0-5 (0-5) /hpf Urine Bacteria Few (FEW) /hpf Urine Mucus Not seen (FEW) /hpf SARS-CoV-2 RNA (ANGELA) Negative (NEGATIVE) 08/26/20 08/26/20 08/26/20 Range/Units 05:54 05:54 05:54 WBC 5.49 (4.23-9.07) K/mm3 RBC 5.10 (4.63-6.08) M/mm3 Hgb 13.7 (13.7-17.5) gm/dl Hct 43.9 (40.1-51.0) % MCV 86.1 (79.0-92.2) fl MCH 26.9 (25.7-32.2) pg MCHC 31.2 L (32.2-35.5) g/dl RDW Std Deviation 50.9 H (35.1-43.9) fL Plt Count 176 (163-337) K/mm3 MPV 10.2 (9.4-12.3) fl Neut % (Auto) 77.9 H (34.0-67.9) % Lymph % (Auto) 13.3 L (21.8-53.1) % Bureau % (Auto) 7.3 (5.3-12.2) % Eos % (Auto) 0.9 (0.8-7.0) Baso % (Auto) 0.4 (0.1-1.2) % Neut # (Auto) 4.28 (1.78-5.38) K/mm3 Lymph # (Auto) 0.73 L (1.32-3.57) K/mm3 Bureau # (Auto) 0.40 (0.30-0.82) K/mm3 Eos # (Auto) 0.05 (0.04-0.54) K/mm3 Baso # (Auto) 0.02 (0.01-0.08) K/mm3 Sodium 139 (136-145) mEq/L Potassium 3.6 (3.5-5.1) mEq/L Chloride 103 (98-107) mEq/L Carbon Dioxide 32 (21-32) mEq/L Anion Gap 7.6 (5-15) BUN 20 H (7-18) mg/dL Creatinine 1.1 (0.7-1.3) mg/dL Est Cr Clr Drug Dosing 49.23 mL/min Estimated GFR (MDRD) > 60 (>60) mL/min BUN/Creatinine Ratio 18.2 H (14-18) Glucose 103 (83-115) mg/dL POC Glucose (83-110) mg/dL Calcium 8.9 (8.5-10.1) mg/dL Phosphorus 3.1 (2.6-4.7) mg/dL Magnesium 1.8 (1.8-2.4) mg/dl Total Bilirubin 0.6 (0.2-1.0) mg/dL AST 23 (15-37) U/L ALT 27 (16-63) U/L Alkaline Phosphatase 51 (46-116) U/L Total Protein 6.0 L (6.4-8.2) g/dl Albumin 3.0 L (3.4-5.0) g/dl Globulin 3.0 gm/dL Albumin/Globulin Ratio 1.0 (1-2) LDL Cholesterol Direct 56 (<100) mg/dL Urine Color (Yellow) Urine Appearance (Clear) Urine pH (5.0-8.0) Ur Specific [place] (1.005-1.030) Urine Protein (Negative) Urine Glucose (UA) (Negative) Urine Ketones (Negative) Urine Occult Blood (Negative) Urine Nitrite (Negative) Urine Bilirubin (Negative) Urine Urobilinogen (0.2-1.0) Ur Leukocyte Esterase (Negative) Urine RBC (0-5) /hpf Urine WBC (0-5) /hpf Ur Squamous Epith Cells (0-5) /hpf Urine Bacteria (FEW) /hpf Urine Mucus (FEW) /hpf SARS-CoV-2 RNA (ANGELA) (NEGATIVE) Med Orders - Current: Current Medications Acetaminophen (Tylenol) 650 mg PO Q4H PRN PRN Reason: Pain (Mild 1-3)/fever Albuterol/Ipratropium (Duoneb 3.0-0.5 Mg/3 Ml) 3 ml NEB Q4H PRN PRN Reason: Shortness Of Breath/wheezing Aspirin (Halfprin) 81 mg PO DAILY [facility] Last Admin: 08/26/20 09:07 Dose: 81 mg Documented by: Bisacodyl (Dulcolax) 5 mg PO DAILY PRN PRN Reason: Constipation Cholecalciferol (Vitamin D3) 50 mcg PO DAILY [facility] Last Admin: 08/26/20 09:07 Dose: 50 mcg Documented by: Clopidogrel Bisulfate (Plavix) 75 mg PO DAILY [facility] Last Admin: 08/26/20 09:16 Dose: 75 mg Documented by: Cyanocobalamin (Vitamin B12) 1,000 mcg PO DAILY [facility] Last Admin: 08/26/20 09:07 Dose: 1,000 mcg Documented by: Docusate Sodium (Colace) 100 mg PO BID PRN PRN Reason: Constipation Enoxaparin Sodium (Lovenox) 40 mg SUBCUT BEDTIME [facility] Imipramine HCl (Imipramine Hcl) 50 mg PO BEDTIME [facility] Last Admin: 08/26/20 05:37 Dose: Not Given Documented by: Meclizine HCl (Antivert) 25 mg PO DAILY PRN PRN Reason: Dizziness Enalapril 10mg Tab (Pt's Own) 0 each PO DAILY [facility] Last Admin: 08/26/20 09:09 Dose: 0.5 each Documented by: Hydrochlorothiazide (50 Mg Pt's Own) 0 mg PO DAILY [facility] Last Admin: 08/26/20 09:08 Dose: 50 mg Documented by: Rosuvastatin Ca 40mg (Pt's Own Med) 0 each PO BEDTIME [facility] Albuterol Sulfate (Proair Pt's Own Med) 0 puff INH Q6HR PRN PRN Reason: BREATHING Budesonide/Formoterol Symbicort Pt's Own Med 0 puff INH BID [facility] Tiotropium Lengby Spiriva - Pt's Own Med 0 mcg INH DAILY [facility] Ondansetron HCl (Zofran Odt) 4 mg PO Q6H PRN PRN Reason: nausea, able to take PO Oxycodone HCl (Oxycodone) 5 mg PO Q4H PRN PRN Reason: Pain (moderate 4-6) Ropinirole HCl (Requip) 0.5 mg PO DAILY@2100 [facility] Last Admin: 08/25/20 21:30 Dose: 0.5 mg Documented by: Sodium Chloride (Saline Flush) 10 ml FLUSH ONETIME PRN PRN Reason: IV FLUSH Last Admin: 08/25/20 14:43 Dose: 10 ml Documented by: Temazepam (Restoril) 15 mg PO BEDTIME PRN PRN Reason: Sleep Discontinued Medications Enoxaparin Sodium (Lovenox) 30 mg SUBCUT DAILY [facility] Last Admin: 08/26/20 02:04 Dose: Not Given Documented by: Enoxaparin Sodium (Lovenox) 30 mg SUBCUT BEDTIME [facility] Last Admin: 08/25/20 21:32 Dose: 30 mg Documented by: Sodium Chloride (Normal Saline) 500 mls @ 999 mls/hr IV .BOLUS ONE Stop: 08/25/20 14:29 Last Admin: 08/25/20 14:51 Dose: 999 mls/hr Documented by: Sodium Chloride (Normal Saline) 100 mls @ 75 mls/hr IV ASDIRECTED [facility] Last Admin: 08/25/20 14:44 Dose: 75 mls/hr Documented by: Sodium Chloride (Normal Saline) 1,000 mls @ 75 mls/hr IV ASDIRECTED [facility] Last Admin: 08/26/20 05:37 Dose: 75 mls/hr Documented by: Influenza Virus Vaccine (Fluzone High-Dose Quad ) 240 mcg IM .ONCE ONE Stop: 08/25/20 15:01 Last Admin: 08/25/20 15:16 Dose: 240 mcg Documented by: Iopamidol (Isovue-370 (76%)) 100 ml IVPUSH ONETIME ONE Stop: 08/25/20 14:04 Last Admin: 08/25/20 14:43 Dose: 100 ml Documented by: Budesonide/Formoterol Symbicort Pt's Own Med 0 puff INH BID [facility] Non-Formulary Medication (Rosuvastatin Calcium [Rosuvastatin Calcium]) 40 mg PO BEDTIME [facility] Tiotropium Lengby Spiriva - Pt's Own Med 0 mcg INH DAILY [facility] Albuterol Sulfate (Proair Pt's Own Med) 0 puff INH Q6HR PRN PRN Reason: BREATHING Potassium Chloride (Klor-Con M20) 40 meq PO ONETIME ONE Stop: 08/25/20 15:46 Last Admin: 08/25/20 16:29 Dose: 40 meq Documented by: Rosuvastatin Calcium (Crestor) 20 mg PO BEDTIME [facility] Last Admin: 08/25/20 21:31 Dose: 20 mg Documented by: - Exam Quality Assessment: Reports: Supplemental Oxygen (wears O2 at home at two liters during the day and three liters at night), DVT Prophylaxis (lovenox) General: Reports: Alert, Oriented, Cooperative, No Acute Distress HEENT: Reports: Pupils Equal, Pupils Reactive, Mucous Membr. Moist/[place] Neck: Reports: Supple, Trachea Midline. Denies: Lymphadenopathy Lungs: Reports: Clear to Auscultation, Normal Respiratory Effort, Decreased Breath Sounds Cardiovascular: Reports: Regular Rate, Regular Rhythm, No Murmurs GI/Abdominal Exam: Normal Bowel Sounds, Soft, Non-Tender, No Distention (Male) Exam: Deferred Rectal (Males) Exam: Deferred Back Exam: Reports: Normal Inspection, Full Range of Motion Extremities: Normal Inspection, Normal Range of Motion, Non-Tender, No Pedal Edema, Normal Capillary Refill Skin: Reports: Warm, Dry, Intact Neurological: Reports: No New Focal Deficit Psy/Mental Status: Reports: Alert, Normal Affect, Normal Mood <Antony Moran - Last Filed: 08/26/20 15:24> Discharge Summary - Referral to Home Health Primary Care Physician: Renzo Barber Jr, MD - Discharge Diagnosis/Problem(s) (1) Transient memory loss SNOMED Code(s): 986510871 ICD Code: R41.3 - OTHER AMNESIA Status: Acute Priority: High Current Visit: Yes (2) Abdominal aortic aneurysm (AAA) 3.0 cm to 5.5 cm in diameter in male SNOMED Code(s): 535015659 ICD Code: I71.4 - ABDOMINAL AORTIC ANEURYSM, WITHOUT RUPTURE Status: Chronic Priority: Medium Current Visit: Yes (3) Hypertension SNOMED Code(s): 32181690 ICD Code: I10 - ESSENTIAL (PRIMARY) HYPERTENSION Status: Chronic Priority: Medium Current Visit: Yes Qualifiers: Hypertension type: essential hypertension Qualified Code(s): I10 - Essential (primary) hypertension - Patient Summary/Data Consults: Consultations 08/25/20 16:32 OT Evaluation and Treatment [CONS] Routine PT Evaluation and Treatment [CONS] Routine Hospital Course: I have seen and examined the patient independent of nurse practitioner Dori Horn and I have discussed the case with her. I have reviewed and agree with the assessment and plan as outlined for this patient by her. Please see orders. - Patient Data Vitals - Most Recent: Last Vital Signs Temp 36.3 C 08/26/20 11:38 Pulse 64 08/26/20 11:38 Resp 14 08/26/20 11:38 BP 162/75 H 08/26/20 11:35 Pulse Ox 90 L 08/26/20 11:38 I&O - Last 24 hours: Intake & Output 08/26/20 08/26/20 08/26/20 06:59 14:59 22:59 Intake Total 1596 120 Output Total 1200 Balance 396 120 Lab Results - Last 24 hrs: Laboratory Results - last 24 hr 08/25/20 08/25/20 08/26/20 Range/Units 12:20 16:30 05:54 WBC 5.49 (4.23-9.07) K/mm3 RBC 5.10 (4.63-6.08) M/mm3 Hgb 13.7 (13.7-17.5) gm/dl Hct 43.9 (40.1-51.0) % MCV 86.1 (79.0-92.2) fl MCH 26.9 (25.7-32.2) pg MCHC 31.2 L (32.2-35.5) g/dl RDW Std Deviation 50.9 H (35.1-43.9) fL Plt Count 176 (163-337) K/mm3 MPV 10.2 (9.4-12.3) fl Neut % (Auto) 77.9 H (34.0-67.9) % Lymph % (Auto) 13.3 L (21.8-53.1) % Bureau % (Auto) 7.3 (5.3-12.2) % Eos % (Auto) 0.9 (0.8-7.0) Baso % (Auto) 0.4 (0.1-1.2) % Neut # (Auto) 4.28 (1.78-5.38) K/mm3 Lymph # (Auto) 0.73 L (1.32-3.57) K/mm3 Bureau # (Auto) 0.40 (0.30-0.82) K/mm3 Eos # (Auto) 0.05 (0.04-0.54) K/mm3 Baso # (Auto) 0.02 (0.01-0.08) K/mm3 Sodium (136-145) mEq/L Potassium (3.5-5.1) mEq/L Chloride (98-107) mEq/L Carbon Dioxide (21-32) mEq/L Anion Gap (5-15) BUN (7-18) mg/dL Creatinine (0.7-1.3) mg/dL Est Cr Clr Drug Dosing mL/min Estimated GFR (MDRD) (>60) mL/min BUN/Creatinine Ratio (14-18) Glucose (83-115) mg/dL POC Glucose 155 H (83-110) mg/dL Calcium (8.5-10.1) mg/dL Phosphorus (2.6-4.7) mg/dL Magnesium (1.8-2.4) mg/dl Total Bilirubin (0.2-1.0) mg/dL AST (15-37) U/L ALT (16-63) U/L Alkaline Phosphatase (46-116) U/L Total Protein (6.4-8.2) g/dl Albumin (3.4-5.0) g/dl Globulin gm/dL Albumin/Globulin Ratio (1-2) LDL Cholesterol Direct (<100) mg/dL SARS-CoV-2 RNA (ANGELA) Negative (NEGATIVE) 08/26/20 08/26/20 Range/Units 05:54 05:54 WBC (4.23-9.07) K/mm3 RBC (4.63-6.08) M/mm3 Hgb (13.7-17.5) gm/dl Hct (40.1-51.0) % MCV (79.0-92.2) fl MCH (25.7-32.2) pg MCHC (32.2-35.5) g/dl RDW Std Deviation (35.1-43.9) fL Plt Count (163-337) K/mm3 MPV (9.4-12.3) fl Neut % (Auto) (34.0-67.9) % Lymph % (Auto) (21.8-53.1) % Bureau % (Auto) (5.3-12.2) % Eos % (Auto) (0.8-7.0) Baso % (Auto) (0.1-1.2) % Neut # (Auto) (1.78-5.38) K/mm3 Lymph # (Auto) (1.32-3.57) K/mm3 Bureau # (Auto) (0.30-0.82) K/mm3 Eos # (Auto) (0.04-0.54) K/mm3 Baso # (Auto) (0.01-0.08) K/mm3 Sodium 139 (136-145) mEq/L Potassium 3.6 (3.5-5.1) mEq/L Chloride 103 (98-107) mEq/L Carbon Dioxide 32 (21-32) mEq/L Anion Gap 7.6 (5-15) BUN 20 H (7-18) mg/dL Creatinine 1.1 (0.7-1.3) mg/dL Est Cr Clr Drug Dosing 49.23 mL/min Estimated GFR (MDRD) > 60 (>60) mL/min BUN/Creatinine Ratio 18.2 H (14-18) Glucose 103 (83-115) mg/dL POC Glucose (83-110) mg/dL Calcium 8.9 (8.5-10.1) mg/dL Phosphorus 3.1 (2.6-4.7) mg/dL Magnesium 1.8 (1.8-2.4) mg/dl Total Bilirubin 0.6 (0.2-1.0) mg/dL AST 23 (15-37) U/L ALT 27 (16-63) U/L Alkaline Phosphatase 51 (46-116) U/L Total Protein 6.0 L (6.4-8.2) g/dl Albumin 3.0 L (3.4-5.0) g/dl Globulin 3.0 gm/dL Albumin/Globulin Ratio 1.0 (1-2) LDL Cholesterol Direct 56 (<100) mg/dL SARS-CoV-2 RNA (ANGELA) (NEGATIVE) Med Orders - Current: Current Medications Acetaminophen (Tylenol) 650 mg PO Q4H PRN PRN Reason: Pain (Mild 1-3)/fever Albuterol/Ipratropium (Duoneb 3.0-0.5 Mg/3 Ml) 3 ml NEB Q4H PRN PRN Reason: Shortness Of Breath/wheezing Aspirin (Halfprin) 81 mg PO DAILY [facility] Last Admin: 08/26/20 09:07 Dose: 81 mg Documented by: Bisacodyl (Dulcolax) 5 mg PO DAILY PRN PRN Reason: Constipation Cholecalciferol (Vitamin D3) 50 mcg PO DAILY [facility] Last Admin: 08/26/20 09:07 Dose: 50 mcg Documented by: Clopidogrel Bisulfate (Plavix) 75 mg PO DAILY [facility] Last Admin: 08/26/20 09:16 Dose: 75 mg Documented by: Cyanocobalamin (Vitamin B12) 1,000 mcg PO DAILY [facility] Last Admin: 08/26/20 09:07 Dose: 1,000 mcg Documented by: Docusate Sodium (Colace) 100 mg PO BID PRN PRN Reason: Constipation Enoxaparin Sodium (Lovenox) 40 mg SUBCUT BEDTIME [facility] Imipramine HCl (Imipramine Hcl) 50 mg PO BEDTIME [facility] Last Admin: 08/26/20 05:37 Dose: Not Given Documented by: Meclizine HCl (Antivert) 25 mg PO DAILY PRN PRN Reason: Dizziness Enalapril 10mg Tab (Pt's Own) 0 each PO DAILY [facility] Last Admin: 08/26/20 09:09 Dose: 0.5 each Documented by: Hydrochlorothiazide (50 Mg Pt's Own) 0 mg PO DAILY [facility] Last Admin: 08/26/20 09:08 Dose: 50 mg Documented by: Rosuvastatin Ca 40mg (Pt's Own Med) 0 each PO BEDTIME [facility] Albuterol Sulfate (Proair Pt's Own Med) 0 puff INH Q6HR PRN PRN Reason: BREATHING Budesonide/Formoterol Symbicort Pt's Own Med 0 puff INH BID [facility] Tiotropium Lengby Spiriva - Pt's Own Med 0 mcg INH DAILY [facility] Ondansetron HCl (Zofran Odt) 4 mg PO Q6H PRN PRN Reason: nausea, able to take PO Oxycodone HCl (Oxycodone) 5 mg PO Q4H PRN PRN Reason: Pain (moderate 4-6) Ropinirole HCl (Requip) 0.5 mg PO DAILY@2100 [facility] Last Admin: 08/25/20 21:30 Dose: 0.5 mg Documented by: Sodium Chloride (Saline Flush) 10 ml FLUSH ONETIME PRN PRN Reason: IV FLUSH Last Admin: 08/25/20 14:43 Dose: 10 ml Documented by: Temazepam (Restoril) 15 mg PO BEDTIME PRN PRN Reason: Sleep Discontinued Medications Enoxaparin Sodium (Lovenox) 30 mg SUBCUT DAILY [facility] Last Admin: 08/26/20 02:04 Dose: Not Given Documented by: Enoxaparin Sodium (Lovenox) 30 mg SUBCUT BEDTIME [facility] Last Admin: 08/25/20 21:32 Dose: 30 mg Documented by: Sodium Chloride (Normal Saline) 500 mls @ 999 mls/hr IV .BOLUS ONE Stop: 08/25/20 14:29 Last Admin: 08/25/20 14:51 Dose: 999 mls/hr Documented by: Sodium Chloride (Normal Saline) 100 mls @ 75 mls/hr IV ASDIRECTED [facility] Last Admin: 08/25/20 14:44 Dose: 75 mls/hr Documented by: Sodium Chloride (Normal Saline) 1,000 mls @ 75 mls/hr IV ASDIRECTED [facility] Last Admin: 08/26/20 05:37 Dose: 75 mls/hr Documented by: Influenza Virus Vaccine (Fluzone High-Dose Quad ) 240 mcg IM .ONCE ONE Stop: 08/25/20 15:01 Last Admin: 08/25/20 15:16 Dose: 240 mcg Documented by: Iopamidol (Isovue-370 (76%)) 100 ml IVPUSH ONETIME ONE Stop: 08/25/20 14:04 Last Admin: 08/25/20 14:43 Dose: 100 ml Documented by: Budesonide/Formoterol Symbicort Pt's Own Med 0 puff INH BID [facility] Non-Formulary Medication (Rosuvastatin Calcium [Rosuvastatin Calcium]) 40 mg PO BEDTIME [facility] Tiotropium Lengby Spiriva - Pt's Own Med 0 mcg INH DAILY [facility] Albuterol Sulfate (Proair Pt's Own Med) 0 puff INH Q6HR PRN PRN Reason: BREATHING Potassium Chloride (Klor-Con M20) 40 meq PO ONETIME ONE Stop: 08/25/20 15:46 Last Admin: 08/25/20 16:29 Dose: 40 meq Documented by: Rosuvastatin Calcium (Crestor) 20 mg PO BEDTIME [facility] Last Admin: 08/25/20 21:31 Dose: 20 mg Documented by:
[2020-08-26] MEDS ORDERED: ROSUVASTATIN CALCIUM 40 MG PO SCH (21:00)
[2020-08-26] MEDS ORDERED: Enoxaparin 40 MG/0.4 ML Syringe SUBCUT SCH (21:00)
[2020-08-26] MEDS ORDERED: ROSUVASTATIN 40 MG PO SCH (21:00)
== END 2020-08-26 15:59 | disposition home or self-care (01) ==
LOC: JD.ED 12:07 → JD.MS 18:16
PROVIDERS: ADMIT Internal Medicine; ATTEND Internal Medicine
DX: R41.3 Other amnesia (principal); I71.4 Abdominal aortic aneurysm, without rupture; I10 Essential (primary) hypertension; Z20.828 Contact with and (suspected) exposure to other viral communicable diseases; Z79.82 Long term (current) use of aspirin; Z79.899 Other long term (current) drug therapy; Z23 Encounter for immunization; Z88.8 Allergy status to other drugs, medicaments and biological substances; Z91.030 Bee allergy status; E78.00 Pure hypercholesterolemia, unspecified; J44.9 Chronic obstructive pulmonary disease, unspecified; Z87.891 Personal history of nicotine dependence
CPT/HCPCS: 36415; 70450; 70496; 70544; 71045; 80053; 81001; 82962; 83721; 83735; 84100; 84484; 85025; 85610; 85730; 90662; 93005; 96360; 96361; 96372; 97116; 97162; 97165; 99285; A9270; G0008; G0378; J1650; J7030; Q9967; U0002

== ENCOUNTER 2024-06-02 19:26 | Observation (INO) | payer MEDICARE, OTHER ==
[2024-06-02] MEDS ORDERED: Sodium Chloride 0.9% 10 ML Syringe FLUSH PRN (19:55)
[2024-06-02 20:12] LABS: BASOPHILS PERCENT AUTO 0.4 % (0.0-1.0); EOSINOPHILS ABSOLUTE AUTO 0.1 K/mm3 (0.0-0.4); EOSINOPHILS PERCENT AUTO 0.8 % (0.0-6.0); HEMATOCRIT 36.8 % (42.0-52.0); HEMOGLOBIN 11.3 gm/dl (14.0-18.0); IMMATURE GRAN ABSOLUTE AUTO 0.07 K/mm3 (0.00-0.05); IMMATURE GRAN PERCENT AUTO 0.8 % (0.0-0.4); LYMPHOCYTES ABSOLUTE AUTO 0.5 K/mm3 (1.0-4.8); LYMPHOCYTES PERCENT AUTO 4.9 % (24.0-44.0); MEAN CORPUSCULAR HEMOGLOBIN 26.1 pg (28.0-32.0); MEAN CORPUSCULAR HGB CONC 30.7 g/dl (32.0-36.0); MEAN PLATELET VOLUME 8.9 fl (9.4-12.4); MONOCYTES ABSOLUTE AUTO 0.4 K/mm3 (0.0-0.8); MONOCYTES PERCENT AUTO 4.7 % (0.0-8.0); NEUTROPHILS ABSOLUTE AUTO 8.2 K/mm3 (1.8-7.7); NEUTROPHILS PERCENT AUTO 88.4 % (41.0-71.0); PLATELET COUNT,PLT 229 K/mm3 (150-400); RED BLOOD CELL COUNT 4.33 M/mm3 (4.52-5.90); WHITE BLOOD CELL COUNT,WBC 9.23 K/mm3 (3.9-11.3)
[2024-06-02 20:27] LABS: CORONAVIRUS COVID-19 NAA NEGATIVE (NEGATIVE); INFLUENZA A NAA NEGATIVE (NEGATIVE); RESPIRATORY SYNCYTIAL VIR NAA NEGATIVE (NEGATIVE)
[2024-06-02 20:36] LABS: A/G RATIO 0.8 (1-2); ALBUMIN 2.8 g/dl (3.4-5.0); ANION GAP 7.2 (5-15); BILIRUBIN TOTAL 0.4 mg/dL (0.2-1.0); BUN/CREATININE RATIO 25.9 (14-18); CALCIUM 9.5 mg/dL (8.5-10.1); CREATININE 1.7 mg/dL (0.7-1.3); EST CRCL DRUG DOSING (CG) 31.61 mL/min; POTASSIUM,K 4.2 mEq/L (3.5-5.1); PROTEIN TOTAL,TP 6.4 g/dl (6.4-8.2)
[2024-06-02 20:39] LABS: LACTIC ACID 1.3 mmol/L (0.4-2.0)
[2024-06-02 21:28] LABS: APPEARANCE,URINE SLT CLOUDY (Clear); BILIRUBIN,URINE 1+ (Negative); COLOR,URINE YELLOW (Yellow); GLUCOSE,URINE NEGATIVE (Negative); KETONES,URINE NEGATIVE (Negative); LEUKOCYTE ESTERASE,URINE NEGATIVE (Negative); NITRITE,URINE NEGATIVE (Negative); OCCULT BLOOD,URINE TRACE-LYSED (Negative); PH,URINE 5.5 (5.0-8.0); PROTEIN,URINE 3+ (Negative); UROBILINOGEN,URINE 0.2 (0.2-1.0)
[2024-06-02] MEDS: cefTRIAXone 1 GM in Sodium Chloride 0.9% 100 ML IV ONE (21:30)
[2024-06-02 21:46] LABS: BACTERIA,URINE FEW /hpf (FEW); FINE GRANULAR CASTS,URINE 0-5 /lpf (0-5); HYALINE CASTS,URINE 20-30 /lpf (0-5); MUCUS,URINE FEW /hpf (FEW); RBC,URINE 0-5 /hpf (0-5); SQUAMOUS EPITHELIAL CELLS,UR 0-5 /hpf (0-5); WBC,URINE 0-5 /hpf (0-5)
[2024-06-02] MEDS: Azithromycin 500 MG in Sodium Chloride 0.9% 250 ML IV SCH (21:59)
[2024-06-03] MEDS: Sodium Chloride 0.9% 1,000 ML IV SCH (00:03)
[2024-06-03] MEDS ORDERED: Acetaminophen 325 MG Tab PO PRN (00:57)
[2024-06-03] MEDS ORDERED: Ondansetron 4 MG Tab.DIS PO PRN (08:18)
[2024-06-03] MEDS: Enoxaparin 40 MG/0.4 ML Syringe SUBCUT SCH (08:40)
[2024-06-03] MEDS: oxyCODONE 5 MG Tab PO PRN (08:44)
[2024-06-03] MEDS: Diltiazem 120 MG Cap.CD PO SCH (09:52)
[2024-06-03] MEDS: Cefepime 2 GM in Sodium Chloride 0.9% 50 ML IV SCH (09:52)
[2024-06-03] MEDS: Clopidogrel 75 MG Tab PO SCH (09:52)
[2024-06-03] MEDS: Docusate Sodium 100 MG Cap PO SCH (09:53)
[2024-06-03] MEDS: Albuterol/Ipratropium 3.0-0.5 MG/3 ML Neb Soln NEB SCH (10:08)
[2024-06-03 12:11] VITALS: BP 119/76; PULSE 59
[2024-06-03] MEDS ORDERED: cefTRIAXone 1 GM in Sodium Chloride 0.9% 100 ML IV SCH (21:00)
[2024-06-03] MEDS ORDERED: Rosuvastatin 10 MG Tab PO SCH (21:00)
[2024-06-03] MEDS ORDERED: guaiFENesin 600 MG Tab.ER PO SCH (21:00)
[2024-06-03] MEDS ORDERED: Montelukast 10 MG Tab PO SCH (21:00)
[2024-06-03] MEDS ORDERED: rOPINIRole 1 MG Tab PO SCH (21:00)
== END 2024-06-03 14:45 | disposition home or self-care (01) ==
LOC: JD.ED 19:26 → JD.MS 21:30
PROVIDERS: ADMIT Family Medicine; ATTEND Family Medicine
DX: J18.9 Pneumonia, unspecified organism (principal); J96.11 Chronic respiratory failure with hypoxia; I25.10 Atherosclerotic heart disease of native coronary artery without angina pectoris; I10 Essential (primary) hypertension; E78.00 Pure hypercholesterolemia, unspecified; J44.9 Chronic obstructive pulmonary disease, unspecified; Z79.899 Other long term (current) drug therapy; Z88.5 Allergy status to narcotic agent; Z91.030 Bee allergy status
CPT/HCPCS: 0241U; 36415; 71046; 80053; 81001; 83605; 83735; 84484; 85025; 87040; 87641; 93005; 94640; 94761; 96365; 96367; 99285; A9270; J0456; J0692; J0696; J1650; J3490; J7030; J7050; 93010; 96361; 96372; 99283; G0378; J7620-GY